=== PATIENT | female | born 1945 | race Caucasian/White ===

== ENCOUNTER → 2016-05-17 | Outpatient (CLI) | payer BC ==
[~2016-05-17] MED LIST: ATEN-173 PO; CALCTAB5 PO; CHOL1CAP57 PO; CRAN1CAP15 PO; ESCI1TAB9 PO; MESA0.37 PO; MULT-506 PO; OMEG10007 PO; RANI150T3 PO
[2016-05-17 10:23] LABS: BASO % 0.5 %; BASO ABS # 0.02 K/uL (0-0.2); COMPLETE YES; EOS % 6.3 %; HEMATOCRIT 40.6 % (37-47); LYMPH ABS # 1.38 K/uL (1.2-3.4); MEAN CELL VOLUME 94.6 fL (80-100); MEAN CORPUSCULAR HEMOGLOBIN 31.7 pg (25-34); MEAN CORPUSCULAR HGB CONC 33.5 g/dl (32-36); MEAN PLATELET VOLUME 9.1 fL (7.4-10.4); MONO % 7.4 %; NEUT % 53.8 %; PLATELET COUNT 339 K/uL (130-400); RED BLOOD COUNT 4.29 M/uL (4.2-5.4); WHITE BLOOD COUNT 4.31 K/uL (4.8-10.8)
[2016-05-17 10:32] LABS: URINE APPEARANCE CLEAR (CLEAR); URINE BILIRUBIN NEG (NEG); URINE COLOR DK YELLOW; URINE NITRITE NEG (NEG); URINE PH 6.5 (4.5-7.5); URINE SPECIFIC GRAVITY 1.019 (1.000-1.030); UROBILINOGEN NEG (NEG)
[2016-05-17 10:34] LABS: MANUAL MICROSCOPIC REQUIRED? NO; REVIEW REQ? NO
[2016-05-17 10:44] LABS: BLOOD UREA NITROGEN 14 mg/dl (7-18); BUN/CREATININE RATIO 11.5 (10-20); CALCIUM 9.3 mg/dl (8.5-10.1); CARBON DIOXIDE 27 mmol/L (21-32); CHLORIDE 107 mmol/L (98-107); CHOLESTEROL 229 mg/dl (0-200); GLUCOSE 93 mg/dl (70-99); POTASSIUM 4.3 mmol/L (3.5-5.1); SODIUM 143 mmol/L (136-145); TRIGLYCERIDES 177 mg/dl (0-150); VERY LOW DENSITY LIPOPROT CALC 35 mg/dl
[2016-05-17 10:47] LABS: CHOLESTEROL/HDL RATIO 3.6; HDL CHOLESTEROL 63 mg/dl; LDL CHOLESTEROL CALCULATED 131 mg/dl
== END | disposition home or self-care (01) ==
LOC: C.LAB1850 09:02
PROVIDERS: ATTEND Internal Medicine
DX: K51.90 Ulcerative colitis, unspecified, without complications (principal); E78.5 Hyperlipidemia, unspecified; I10 Essential (primary) hypertension; E55.9 Vitamin D deficiency, unspecified

== ENCOUNTER → 2016-05-29 | Outpatient (CLI) | payer BC ==
--- NOTE | 2016-05-29 16:17 | MAMMOGRAPHY REPORT ---
BILATERAL DIGITAL SCREENING MAMMOGRAM WITH CAD: 05/29/2016 CLINICAL HISTORY: Routine screening examination. TECHNIQUE: Current study was also evaluated with a Computer Aided Detection (CAD) system. COMPARISON: Comparison is made to exams dated: 05/27/2015 mammogram, 05/26/2014 mammogram, 05/25/2013 mammogram, 05/16/2009 mammogram, 05/17/2010 mammogram, and 05/22/2011 mammogram - [facility]. BREAST COMPOSITION: There are scattered areas of fibroglandular density in both breasts. FINDINGS: The parenchymal pattern is unchanged. No developing mass, architectural distortion or clu ster of suspicious microcalcifications is seen. IMPRESSION: ACR BI-RADS CATEGORY 2: BENIGN There is no mammographic evidence of malignancy. A 1 year screening mammogram is recommended. The p atient will receive written notification of the results. Approximately 10% of breast cancers are not detected with mammography. A negative mammographic repor t should not delay biopsy if a clinically suggestive mass is present. Francia Barton M.D. ay/:05/29/2016 14:00:41 Customer Account Representative: Paula BELLE(Karrie)(P[place]), [facility] letter sent: Normal 1/2 BI-RADS Code: ACR BI-RADS Category 2: Benign
== END | disposition home or self-care (01) ==
LOC: C.MAMM 13:08
PROVIDERS: ATTEND Obstetrics & Gynecology
DX: Z12.31 Encounter for screening mammogram for malignant neoplasm of breast (principal)

== ENCOUNTER → 2016-11-29 | Outpatient (CLI) | payer BC ==
[2016-11-29 09:47] LABS: HEMATOCRIT 41.9 % (37-47); MEAN CORPUSCULAR HEMOGLOBIN 32.2 pg (25-34); MEAN CORPUSCULAR HGB CONC 33.9 g/dl (32-36); MEAN PLATELET VOLUME 9.7 fL (7.4-10.4); PLATELET COUNT 230 K/uL (130-400); RED BLOOD COUNT 4.41 M/uL (4.2-5.4); WHITE BLOOD COUNT 4.62 K/uL (4.8-10.8)
[2016-11-29 12:51] LABS: BLOOD UREA NITROGEN 16 mg/dl (7-18); BUN/CREATININE RATIO 13.5 (10-20); CALCIUM 9.2 mg/dl (8.5-10.1); CARBON DIOXIDE 28 mmol/L (21-32); CHLORIDE 108 mmol/L (98-107); GLUCOSE 100 mg/dl (70-99); POTASSIUM 4.3 mmol/L (3.5-5.1); SODIUM 141 mmol/L (136-145)
[2016-11-29 12:55] LABS: ALB/GLOB RATIO 1.2 (0.9-2); ALKALINE PHOSPHATASE 76 U/L (45-117); ALT/SGPT 23 U/L (12-78); AST/SGOT 17 U/L (15-37); CHOLESTEROL 226 mg/dl (0-200); CHOLESTEROL/HDL RATIO 3.1; HDL CHOLESTEROL 74 mg/dl; LDL CHOLESTEROL CALCULATED 124 mg/dl; TRIGLYCERIDES 142 mg/dl (0-150); VERY LOW DENSITY LIPOPROT CALC 28 mg/dl
== END | disposition home or self-care (01) ==
LOC: C.LAB1850 08:29
PROVIDERS: ATTEND Internal Medicine
DX: K51.90 Ulcerative colitis, unspecified, without complications (principal); E55.9 Vitamin D deficiency, unspecified; E78.5 Hyperlipidemia, unspecified

== ENCOUNTER → 2017-05-31 | Outpatient (CLI) | payer BC ==
--- NOTE | 2017-06-03 15:50 | MAMMOGRAPHY REPORT ---
BILATERAL DIGITAL SCREENING MAMMOGRAM TOMOSYNTHESIS WITH CAD: 05/31/2017 CLINICAL HISTORY: Routine screening. Patient has no complaints. TECHNIQUE: Breast tomosynthesis in addition to standard 2D mammography was performed. Current study was also evaluated with a Computer Aided Detection (CAD) system. COMPARISON: Comparison is made to exams dated: 05/29/2016 mammogram, 05/27/2015 mammogram, 05/26/2014 m ammogram, 05/25/2013 mammogram, 05/22/2012 mammogram, and 05/22/2011 mammogram - [facility]. BREAST COMPOSITION: There are scattered areas of fibroglandular density in both breasts. FINDINGS: No suspicious masses, calcifications, or areas of architectural distortion are noted in ei ther breast. There has been no significant interval change compared to prior exams. IMPRESSION: ACR BI-RADS CATEGORY 1: NEGATIVE There is no mammographic evidence of malignancy. A 1 year screening mammogram is recommended. The pa tient will receive written notification of the results. Approximately 10% of breast cancers are not detected with mammography. A negative mammographic report should not delay biopsy if a clinically suggestive mass is present. Latonia Soni M.D. ah/:05/31/2017 15:02:36 [employer] Developer: Jennifer BELLE(Karrie)(M), [facility] letter sent: Normal 1/2 BI-RADS Code: ACR BI-RADS Category 1: Negative
== END | disposition home or self-care (01) ==
LOC: C.MAMM 08:59
PROVIDERS: ATTEND Internal Medicine
DX: Z12.31 Encounter for screening mammogram for malignant neoplasm of breast (principal)

== ENCOUNTER → 2017-08-28 | Day surgery (SDC) | payer BC ==
[2017-07-23 13:05] VITALS: Ht 163.8 cm; Wt 67.7 kg
[~2017-08-28] VITALS: Ht 163.8 cm; Wt 67.7 kg
[~2017-08-28] MED LIST changes: +500ML BSS 0.3ML EPI 1:1000PF IRRIG ONE; +ACETAMINOPHEN 325 MG TAB PO PRN; +AMVISC PLUS 0.8ML SYRINGE INT OCU ONE; +ATROPINE SULFATE 0.1 MG/ML 5ML SYR IV PRN; +AcetaZOLAMIDE 250 MG TAB PO SCH; +BRIMONIDINE TART 0.2% OP SOLN PER DROP CHARGE ONE; +BRIMONIDINE TARTRATE 0.2% 5ML ONE; +BSS FLUSH ONE; +CALC-393 PO; -CALCTAB5 PO; -CRAN1CAP15 PO; +CRANCAP4 PO; +ENDOCOAT 0.85ML SYRINGE INT OCU ONE; +ESCI10TA17 PO; -ESCI1TAB9 PO; +EpHEDrine SULFATE INJ 50 MG/ML AMP IV PRN; +EpINEphrine INJ 1MG/ML AMP 1 MG/ML AMP ONE; +LACTATED RINGER'S 1000ML 500 ML IV SCH; +LIDOCAINE 4% OP SOLN DROP CHARGE ONE; +LIDOCAINE 4% OP SOLN DROP CHARGE OPL SCH; +LIDOCAINE HCL 1% MPF 2 ML VIAL ONE; -MESA0.37 PO; +MESA1TAB4 PO; +MIDAZOLAM HCL 1 MG/ML 2ML VIAL ONE; +MIX: 4ML BSS 1ML EPI 1:1000 PF INSTIL ONE; +MOXIFLOXACIN OPH SOLN PER DROP CHARGE ONE; +OCUCOAT 1 ML SOLN IO ONE; +POVIDONE-IODINE OP SOLN 30 ML BTL ONE; +PROPARACAINE 0.5% OP SOLN PER DROP CHARGE OPL SCH; +TOBRAMYCIN/DEXAMETHASONE OPH OINT PER APPLN CHARGE ONE
[2017-08-28] MEDS: PHENYLEPHRINE HCL 2.5% OP SOLN PER DROP CHARGE OPL SCH ×2 (06:33→06:38)
[2017-08-28] MEDS: TROPICAMIDE 1% OP SOLN PER DROP CHARGE OPL SCH ×2 (06:34→06:39)
[2017-08-28] MEDS: CYCLOPENTOLATE HCL 1% OP SOLN PER DROP CHARGE OPL SCH ×2 (06:35→06:40)
[2017-08-28] MEDS: MOXIFLOXACIN OPH SOLN PER DROP CHARGE OPL SCH ×2 (06:36→06:46)
--- NOTE | 2017-08-28 06:39 | History & Physical Bridge - [place] ---
H&P Re-Evaluation Bridge Note: I have examined the patient, reviewed the History & Physical and in the interval since the performance of the History & Physical I have noted the following changes of clinical significance: No changes noted
--- NOTE | 2017-08-28 07:17 | [facility] Operative Report ---
Operative Report Date of Service Aug 28, 2017. Operative Report 1. PREOPERATIVE DIAGNOSIS: Senile nuclear cataract, left eye. 2. POSTOPERATIVE DIAGNOSIS: Senile nuclear cataract, left eye. 3. PROCEDURE: Phacoemulsification of left cataract with posterior chamber lens implant, type Technis, model Symfony ZXR00, power +18.5 diopters. ANESTHESIA: Local standby. SURGEON: Dr. Gamble. COMPLICATIONS: None. OPERATING TIME: 10 minutes. 4. OPERATION AND FINDINGS: DESCRIPTION OF PROCEDURE: The left pupil was dilated. The anesthetic was administered using a topical technique. The left eye was prepped and draped. A speculum was placed. A clear corneal incision was formed. The chamber was filled with Amvisc Plus and Endocoat. Epinephrine solution was used. A paracentesis was placed. A capsulorrhexis was performed. The nucleus was hydrodissected. The lens was removed with phacoemulsification. Time was 3.53 seconds. The aspiration unit was used to remove the cortex. The capsule was filled with Amvisc Plus. The lens implant was folded and placed into the capsule. The incision was hydrated. The Amvisc was aspirated. The wound was secure. The chamber was deep. The pupil was round. Brimonidine, TobraDex ointment and Vigamox solution were placed. The speculum was removed. The patient was returned to the Recovery Room in stable condition. I attest to the content of the Intraoperative Record and any orders documented therein. Any exceptions are noted below. The scribe's documentation has been prepared in my presence, under my direction and personally reviewed by me in its entirety. I confirm that the note above accurately reflects all work, treatment, procedures, and medical decision making performed by me. I personally scribed for Jose Antonio Gamble M.D. ([email or web address]) on 08/28/17 at 07:17. Electronically submitted by Kaelyn Martell ([email or web address]).
[2017-08-28 07:20] VITALS: TEMP 36.6
--- NOTE | 2017-08-28 07:20 | Discharge Instructions-SurgCtr ---
Discharge Instructions Date of Service Aug 28, 2017. Visit Reason for Visit: Left Cataract Discharge Discharge Diagnosis / Problem: lens implant left eye Discharge Goals Goal(s): Improve function Activity Recommendations Activity Limitations: resume your previous activity Lifting Limitations: no more than 10 pounds Exercise/Sports Limitations: gradually increase as tolerated May Resume Sexual Activity: when tolerated Shower/Bathe: tomorrow Driving or Machine Use: resume 1 day after discharge Anesthesia . Post Anesthesia Instructions: If you have had General Anesthesia or IV Sedation: * Do not drive today. * Resume driving when surgeon permits. * Do not make important decisions or sign legal documents today. * Call surgeon for: 1. Temperature elevations greater than 101 degrees F. 2. Uncontrollable pain. 3. Excessive bleeding. 4. Persistent nausea and vomiting. 5. Medication intolerance (nausea, vomiting or rash). * For nausea and vomiting use only clear liquids such as: tea, soda, bouillon until nausea subsides, then gradually increase diet as tolerated. * If you have any concerns or questions, call your surgeon's office. If physician is unavailable and it is an emergency, call 911 or go to the nearest emergency room. . Instructions / Follow-Up Instructions / Follow-Up ACTIVITY RECOMMENDATIONS: * Light activities. * Mild irritation and blurred vision are common for the first few days. * You may walk outside, read, watch television. * Redness around the white part of the eye is common. MEDICATIONS: Resume previous medications unless instructed otherwise by your surgeon. * Take white Diamox (Acetazolamide) tablet at 1 pm today. Start all eye drops at 1 pm today: * Eye drops (today and tomorrow): Prednisone - one drop in operative eye every 3 hours while awake Ofloxacin - one drop in operative eye every 3 hours while awake SPECIAL CARE INSTRUCTIONS: * Tape plastic shield over eye to sleep at night. Call your doctor at with any concerns or problems. FOLLOW UP VISIT: Follow-up with Dr Gamble at [place] office as scheduled. Diet Recommendations Home Diet: no limitations Procedures Procedures Performed: Left Cataract Phacoemulsification With Intraocular Lens Implant Pending Studies Studies pending at discharge: no Medical Emergencies . Who to Call and When: Medical Emergencies: If at any time you feel your situation is an emergency, please call 911 immediately. . Non-Emergent Contact Non-Emergency issues call your: Pension Consultant Call Non-Emergent contact if: your pain is not controlled [phone] . . "Provider Documentation" section prepared by Jose Antonio Gamble. .
[2017-08-28 07:40] VITALS: BP 166/79; PULSE 50; O2SAT 100
--- NOTE | 2017-08-28 07:49 | Anesthesia Progress Nt - [facility] ---
Anesthesia Post Op Note Date & Time Aug 28, 2017 at 07:49 Vital Signs Pain Intensity: 0 Vital Signs Past 12 Hours Date Time Temp Pulse Resp B/P (MAP) Pulse Ox O2 Delivery O2 Flow Rate FiO2 08/28/17 07:40 50 14 166/79 (108) 100 Room Air 08/28/17 07:20 36.6 50 16 145/71 (95) 98 Room Air 08/28/17 06:27 36.7 52 18 162/96 (118) 96 Room Air Notes Mental Status: alert / awake / arousable, participated in evaluation Pt Amnestic to Procedure: Yes Nausea / Vomiting: adequately controlled Pain: adequately controlled Airway Patency, RR, SpO2: stable & adequate BP & HR: stable & adequate Hydration State: stable & adequate Anesthetic Complications: no major complications apparent
== END | disposition home or self-care (01) ==
LOC: X.SURG 06:08
PROVIDERS: ATTEND Specialist
DX: H25.12 Age-related nuclear cataract, left eye (principal); J45.909 Unspecified asthma, uncomplicated; I10 Essential (primary) hypertension; K21.9 Gastro-esophageal reflux disease without esophagitis

== ENCOUNTER → 2017-12-11 | Outpatient (CLI) | payer BC ==
[~2017-12-11] MED LIST changes: -500ML BSS 0.3ML EPI 1:1000PF IRRIG ONE; -ACETAMINOPHEN 325 MG TAB PO PRN; -AMVISC PLUS 0.8ML SYRINGE INT OCU ONE; -ATROPINE SULFATE 0.1 MG/ML 5ML SYR IV PRN; -AcetaZOLAMIDE 250 MG TAB PO SCH; -BRIMONIDINE TART 0.2% OP SOLN PER DROP CHARGE ONE; -BRIMONIDINE TARTRATE 0.2% 5ML ONE; -BSS FLUSH ONE; -ENDOCOAT 0.85ML SYRINGE INT OCU ONE; -EpHEDrine SULFATE INJ 50 MG/ML AMP IV PRN; -EpINEphrine INJ 1MG/ML AMP 1 MG/ML AMP ONE; -LACTATED RINGER'S 1000ML 500 ML IV SCH; -LIDOCAINE 4% OP SOLN DROP CHARGE ONE; -LIDOCAINE 4% OP SOLN DROP CHARGE OPL SCH; -LIDOCAINE HCL 1% MPF 2 ML VIAL ONE; -MIDAZOLAM HCL 1 MG/ML 2ML VIAL ONE; -MIX: 4ML BSS 1ML EPI 1:1000 PF INSTIL ONE; -MOXIFLOXACIN OPH SOLN PER DROP CHARGE ONE; -OCUCOAT 1 ML SOLN IO ONE; -POVIDONE-IODINE OP SOLN 30 ML BTL ONE; -PROPARACAINE 0.5% OP SOLN PER DROP CHARGE OPL SCH; -TOBRAMYCIN/DEXAMETHASONE OPH OINT PER APPLN CHARGE ONE
[2017-12-11 09:34] LABS: HEMATOCRIT 42.2 % (37-47); HEMOGLOBIN 14.1 g/dL (12.0-16.0); MEAN CELL VOLUME 95.7 fL (80-100); MEAN CORPUSCULAR HGB CONC 33.4 g/dl (32-36); MEAN PLATELET VOLUME 9.8 fL (7.4-10.4); PLATELET COUNT 227 K/uL (130-400); RED CELL DISTRIBUTION WIDTH CV 13.3 % (11.5-14.5); WHITE BLOOD COUNT 4.83 K/uL (4.8-10.8)
[2017-12-11 10:05] LABS: ALT/SGPT 24 U/L (12-78); AST/SGOT 17 U/L (15-37); BLOOD UREA NITROGEN 18 mg/dl (7-18); CALCIUM 9.1 mg/dl (8.5-10.1); CARBON DIOXIDE 30 mmol/L (21-32); CHOLESTEROL 233 mg/dl (0-200); CREATININE 1.17 mg/dl (0.60-1.20); GLUCOSE 86 mg/dl (70-99); LDL CHOLESTEROL CALCULATED 136 mg/dl; POTASSIUM 4.1 mmol/L (3.5-5.1); SODIUM 140 mmol/L (136-145)
== END | disposition home or self-care (01) ==
LOC: C.LAB1850 08:31
PROVIDERS: ATTEND Internal Medicine
DX: E78.5 Hyperlipidemia, unspecified (principal); I10 Essential (primary) hypertension; K51.90 Ulcerative colitis, unspecified, without complications; E55.9 Vitamin D deficiency, unspecified

== ENCOUNTER 2020-12-03 11:08 | Inpatient (IN) ==
[2020-12-03] MEDS ORDERED: ONDANSETRON INJ 2 MG/ML 2 ML VIAL IV STA (11:34)
[2020-12-03] MEDS ORDERED: SODIUM CHLORIDE 0.9% 1000ML 1,000 ML IV STA (11:34)
[2020-12-03] MEDS ORDERED: OPTIRAY 320 100ml IV ONE (11:38)
--- NOTE | 2020-12-03 11:40 | Emergency Department Note ---
Impression & Plan Acute hyponatremia, Elevated troponin, Elevated liver enzymes, Weakness ED Provider Note NAME: KIMBERLEE TEJADA AGE: 75 SEX: F : 1945 ARRIVES VIA: Walk-In INFORMANT: [Patient] ED PROVIDER(S): [Gianluca Jeronimo MD] CHIEF COMPLAINT: Abdominal pain HISTORY OF PRESENT ILLNESS: The patient is a 75-year-old female who states that on November 22, she had a colonoscopy. A diverticuli was seen. The patient states that a few days after, she began having some lower abdominal pain, mostly on the right. She developed a fever and nausea. She has no appetite. The pain in the abdomen is minimal and about a 2 on a scale of 1 out of 10. The patient went to her doctor's offi ce had a Covid test, x-ray of her chest, lab work, urine sample. Her LFTs were a bit elevated, her urine suggested infection and she was placed on Macrobid. He was just recently called and told to stop the Macrobid as the culture returned negative. The patient states that because of the liver enzyme elevation, her doctor performed an ultrasound of the right upper quadrant, this was unremarkable. Today, as she is no better really, she was sent to the ED for evaluation. She does state though her fever has subsided. The patient has not had vomiting. There has been no urinary complaints. No cough, cold, congestion or shortness of breath. She does complain of some body aching though. REVIEW OF SYSTEMS: See HPI for pertinent positives and negatives. A total of ten systems were reviewed and were otherwise negative. PMHx/PSHx: See Below SOCIAL HISTORY: See Below. PHYSICAL EXAM: GENERAL: Patient is in no acute distress. HEENT: No acute trauma, normocephalic atraumatic, mucous membranes moist, no nasal congestion, no scleral icterus. NECK: No stridor, no adenopathy, no meningismus, trachea is midline. LUNGS: Clear to auscultation bilaterally, no wheeze, no rhonchi, breath sounds equal. HEART: Without murmurs gallops or rubs, regular rate and rhythm. ABDOMEN: Soft, mildly tender in the epigastrium, I cannot really produce any discomfort currently in the right lower quadrant, bowel sounds positive, no hernias, no peritonitis. EXTREMITIES: No cyanosis or edema, full range of motion of all the joints without pain or difficulty, no signs for acute trauma. NEUROLOGIC: Oriented x 3, no acute motor or sensory deficits, no focal weakness. SKIN: No rash, no jaundice, no diaphoresis. DIFFERENTIAL DIAGNOSIS: Appendicitis, ovarian cyst, ovarian torsion, infections, diverticulitis, UTI, obstruction, mesenteric ischemia, aortic pathology, inflammatory bowel disease, renal colic, PUD, pancreatitis, biliary pathology, hernia, volvulus, const ipation, as well as other pathologies. EMERGENCY DEPARTMENT COURSE/PROCEDURES: ECG: Indication was abdominal pain. The ECG shows a normal sinus rhythm with a rate of 75. There is some nonspecific ST change. I see no concerning ST elevation. There are no PVCs. The QTc is 439. Continuous Cardiac Monitoring: An order was placed for continuous cardiac monitoring. The monitor shows a rate of 68 with normal sinus rhythm. MEDICAL DECISION MAKING: There is a mild leukocytosis, this could be consistent with infection. There was a normal hemoglobin and platelet count. Sodium was low at 129. No kidney failure. Lactic acid level was not elevated making severe sepsis less likely. There were some moderate liver enzyme elevations. ECG showed a sinus rhythm without acute ischemic change. Cardiac enzyme testing x1 did return elevated consistent with possible cardiac injury or strain. No evidence for pancreatitis by her testing. Urinalysis did not show evidence for infection. Lyme disease testing was positive for IgM, negative for IgG. Covid testing returned negative. Anaplasmosis testing is pending. Chest film showed some chronic findings, no obvious pneumonia. Abdominal and pelvis CT showed potential cystitis, there was a calcified mass in the left pelvis. The liver seemed somewhat inflamed. No bowel obstruction. No diverticulitis. On exam, the patient was not febrile or toxic. There was no peritonitis. The patient was given IV saline, 1 L. She was given IV Zofran. She was given IV ceftriaxone as antibiotic therapy. I am not certain how to explain her entire presentation. A tickborne disease such as Lyme or anaplasmosis is certainly possible. I suppose viral illness is also possible. With all her findings, I do think a hospital stay is warranted. Further care and work-up is warranted. I spoke to the patient and case management. The on-call hospitalist was consulted. Past Med/Surg History Medical History Allergy-induced asthma inhaler prn Anxiety Arthritis GERD (gastroesophageal reflux disease) Hyperlipidemia Hypertension Osteoporosis Tubular adenoma of colon Ulcerative colitis Vitamin D deficiency Surgical History History of bilateral cataract extraction History of breast biopsy benign History of dilatation and curettage History of removal of skin mole History of wisdom tooth extraction Family History Father Lung cancer Mother History of colon cancer Colon cancer Colitis Breast cancer Unknown Heart disease Grandfather (Maternal) Pulmonary embolism Stroke Other Myocardial infarction No family history of adverse response to anesthesia Denies family history of Ovarian cancer Prostate cancer Social History Smoking Status: Never smoker Second Hand Exposure: No; Hx Alcohol Use: Yes Alcohol type: wine Hx Substance Use: No Preferred Language: Dutch Communication Ability: Effective Visual Impairment: No Limitations Hearing Ability: Hard of Hearing Recovery Agent Required: No Beliefs That Will Affect Care: None marital status: Current Living Situation: Spouse current occupational status: retired Feels Safe at Home: Yes Childhood Exposure to Second-Hand Smoke: No Dental Care, Regularly: Yes Physical Activity Frequency: Does not Exercise Seatbelt Use: always Sunscreen Use: Yes Assistive Devices: Glasses Allergies Allergies Allergy/AdvReac Type Severity Reaction Status Date / Time SAWYER Inhibitors Allergy Intermediate lip Verified 12/03/20 12:21 swelling lisinopril Allergy Intermediate LIP Verified 12/03/20 12:21 SWELLING adhesive Allergy Mild SKIN Verified 12/03/20 12:21 IRRITATION latex Allergy Mild skin Verified 12/03/20 12:21 irritation Home Meds Home Medications Medication Instructions Recorded Confirmed calcium carbonate 400 mg calcium 400 mg PO BID tab 11/09/19 12/03/20 (1,000 mg) chewable tablet cholecalciferol (vitamin D3) 25 25 mcg PO BID cap 11/09/19 12/03/20 mcg (1,000 unit) capsule omega 3-dha 120 mg-epa 180 mg-fish 1 cap PO BID cap 11/09/19 12/03/20 oil 600 mg capsule mesalamine 800 mg tablet,delayed 800 mg PO TID tab 05/13/20 12/03/20 release atenolol 25 mg tablet 25 mg PO QAM 11/15/20 12/03/20 cetirizine 10 mg tablet (Zyrtec) 10 mg PO QAM 11/15/20 12/03/20 escitalopram oxalate 10 mg tablet 10 mg PO QAM 11/15/20 12/03/20 famotidine 20 mg tablet (Pepcid) 20 mg PO HS PRN 11/15/20 12/03/20 pantoprazole 40 mg tablet,delayed 40 mg PO QAM 11/15/20 12/03/20 release acetaminophen 500 mg tablet 1,000 mg PO Q6H PRN 12/03/20 12/03/20 (Tylenol Extra Strength) Previous Rx's Medication Instructions Recorded albuterol sulfate 90 mcg/actuation 1 inh INHALATION QID PRN #1 ea 02/23/20 aerosol inhaler nitrofurantoin 100 mg PO BID 7 Days #14 cap 11/29/20 monohydrate/macrocrystals 100 mg capsule (Macrobid) Results & Data (ED) Vital Signs Vital Signs - 24 hr 12/03/20 11:18 12/03/20 11:47 12/03/20 12:02 Temperature 37.2 C Temperature Source Oral Pulse Rate 72 Pulse Rate [Finger] 68 Respiratory Rate 18 18 Blood Pressure 151/83 H Blood Pressure [Left Arm] 142/77 H Blood Pressure Mean 105 Blood Pressure Mean [Left Arm] 98 Pulse Oximetry 95 97 95 Oxygen Delivery Method Room Air Room Air Oxygen Flow Rate Sepsis Recent Fever Within 48 Hours No Sepsis New/Unexplained Change in Mental Status No Sepsis Action Taken by Nursing No Action Required 12/03/20 13:13 12/03/20 13:15 12/03/20 14:04 Temperature Temperature Source Pulse Rate Pulse Rate [Finger] 79 92 H Respiratory Rate 24 20 Blood Pressure Blood Pressure [Left Arm] 178/94 H 173/92 H Blood Pressure Mean Blood Pressure Mean [Left Arm] 122 119 Pulse Oximetry 90 91 95 Oxygen Delivery Method Room Air Nasal Cannula Room Air Oxygen Flow Rate 2 Sepsis Recent Fever Within 48 Hours Sepsis New/Unexplained Change in Mental Status Sepsis Action Taken by Nursing 12/03/20 15:34 12/03/20 16:07 Temperature Temperature Source Pulse Rate Pulse Rate [Finger] 78 83 Respiratory Rate 20 18 Blood Pressure Blood Pressure [Left Arm] 159/87 H 162/81 H Blood Pressure Mean Blood Pressure Mean [Left Arm] 111 108 Pulse Oximetry 96 96 Oxygen Delivery Method Room Air Room Air Oxygen Flow Rate Sepsis Recent Fever Within 48 Hours Sepsis New/Unexplained Change in Mental Status Sepsis Action Taken by Halfway Medications Current Medication List: was personally reviewed by me Laboratory Data Attestation: I reviewed the patient's lab results. Result diagrams: 12/03/20 11:40 12/03/20 13:02 Lab Results 12/03/20 12/03/20 12/03/20 Range/Units 11:40 11:40 11:40 WBC 14.07 H (4.8-10.8) K/uL RBC 4.28 (4.2-5.4) M/uL Hgb 13.9 (12.0-16.0) g/dL Hct 38.9 (37-47) % MCV 90.9 (80-100) fL MCH 32.5 (25-34) pg MCHC 35.7 (32-36) g/dL RDW Std Deviation 47.8 H (36.4-46.3) fL RDW Coeff of Johnson 14.2 (11.5-14.5) % Plt Count 337 (130-400) K/uL MPV 9.4 (7.4-10.4) fL Immature Gran % (Auto) 0.4 % Neut % (Auto) 84.3 % Lymph % (Auto) 10.1 % [place] % (Auto) 5.0 % Eos % (Auto) 0.0 % Baso % (Auto) 0.2 % Neut # (Auto) 11.87 H (1.4-6.5) K/uL Lymph # (Auto) 1.42 (1.2-3.4) K/uL [place] # (Auto) 0.70 H (0.11-0.59) K/uL Eos # (Auto) 0.00 (0-0.5) K/uL Baso # (Auto) 0.03 (0-0.2) K/uL Immature Gran # (Auto) 0.05 H (0.00-0.02) K/uL PT (9.0-12.0) Seconds INR (0.9-1.1) Sodium 129 L (136-145) mmol/L Potassium (3.5-5.1) mmol/L Chloride 97 L (98-107) mmol/L Carbon Dioxide 26 (21-32) mmol/L Anion Gap 6.0 (3-11) BUN 11 (7-18) mg/dl Creatinine 0.91 (0.6-1.2) mg/dl Est Cr Clr Drug Dosing 45.6 ml/min Est GFR ( Amer) 70.5 ml/min Est GFR (Non-Af Amer) 60.9 ml/min BUN/Creatinine Ratio 12.0 (10-20) Glucose 120 H (70-99) mg/dl Osmolality (280-300) mOsm/kg Lactate (0.4-2.0) mmol/L Calcium 8.9 (8.5-10.1) mg/dl Total Bilirubin 1.2 H (0.2-1) mg/dl AST (15-37) U/L ALT 476 H (12-78) U/L Alkaline Phosphatase 268 H (45-117) U/L Troponin I 0.282 H* (0-0.045) ng/ml Total Protein 7.7 (6.4-8.2) gm/dl Albumin 3.1 L (3.4-5.0) gm/dl Globulin 4.6 H (2.5-4.0) gm/dl Albumin/Globulin Ratio 0.7 L (0.9-2) Lipase 144 (73-393) U/L Urine Color Urine Appearance (Clear) Urine pH (4.5-7.5) Ur Specific Tiro (1.000-1.030) Urine Protein (Negative) Urine Glucose (UA) (Negative) Urine Ketones (Negative) Urine Blood (Negative) Urine Nitrite (Negative) Urine Bilirubin (Negative) Urine Urobilinogen (Negative) Ur Leukocyte Esterase (Negative) Urine WBC (Auto) (0-5) /hpf Urine RBC (Auto) (0-4) /hpf U Hyaline Cast (Auto) (0-5) /lpf U Epithel Cells (Auto) (0-5) /lpf Urine Bacteria (Auto) (Negative) Lyme Disease IgG Ab Negative (Negative) Lyme Disease IgM Ab Positive A (Negative) COVID-19 Eval Order SARS-CoV-2 (PCR) (Negative) 12/03/20 12/03/20 12/03/20 Range/Units 11:45 13:02 13:56 WBC (4.8-10.8) K/uL RBC (4.2-5.4) M/uL Hgb (12.0-16.0) g/dL Hct (37-47) % MCV (80-100) fL MCH (25-34) pg MCHC (32-36) g/dL RDW Std Deviation (36.4-46.3) fL RDW Coeff of Johnson (11.5-14.5) % Plt Count (130-400) K/uL MPV (7.4-10.4) fL Immature Gran % (Auto) % Neut % (Auto) % Lymph % (Auto) % [place] % (Auto) % Eos % (Auto) % Baso % (Auto) % Neut # (Auto) (1.4-6.5) K/uL Lymph # (Auto) (1.2-3.4) K/uL [place] # (Auto) (0.11-0.59) K/uL Eos # (Auto) (0-0.5) K/uL Baso # (Auto) (0-0.2) K/uL Immature Gran # (Auto) (0.00-0.02) K/uL PT (9.0-12.0) Seconds INR (0.9-1.1) Sodium (136-145) mmol/L Potassium 3.8 (3.5-5.1) mmol/L Chloride (98-107) mmol/L Carbon Dioxide (21-32) mmol/L Anion Gap (3-11) BUN (7-18) mg/dl Creatinine (0.6-1.2) mg/dl Est Cr Clr Drug Dosing ml/min Est GFR ( Amer) ml/min Est GFR (Non-Af Amer) ml/min BUN/Creatinine Ratio (10-20) Glucose (70-99) mg/dl Osmolality (280-300) mOsm/kg Lactate 1.8 (0.4-2.0) mmol/L Calcium (8.5-10.1) mg/dl Total Bilirubin (0.2-1) mg/dl AST 226 H (15-37) U/L ALT (12-78) U/L Alkaline Phosphatase (45-117) U/L Troponin I (0-0.045) ng/ml Total Protein (6.4-8.2) gm/dl Albumin (3.4-5.0) gm/dl Globulin (2.5-4.0) gm/dl Albumin/Globulin Ratio (0.9-2) Lipase (73-393) U/L Urine Color Yellow Urine Appearance Clear (Clear) Urine pH 7.0 (4.5-7.5) Ur Specific Tiro > 1.045 H (1.000-1.030) Urine Protein Trace H (Negative) Urine Glucose (UA) Negative (Negative) Urine Ketones 1+ H (Negative) Urine Blood Trace H (Negative) Urine Nitrite Negative (Negative) Urine Bilirubin Negative (Negative) Urine Urobilinogen Negative (Negative) Ur Leukocyte Esterase Negative (Negative) Urine WBC (Auto) 1-5 (0-5) /hpf Urine RBC (Auto) 0-4 (0-4) /hpf U Hyaline Cast (Auto) 1-5 (0-5) /lpf U Epithel Cells (Auto) 10-20 H (0-5) /lpf Urine Bacteria (Auto) Negative (Negative) Lyme Disease IgG Ab (Negative) Lyme Disease IgM Ab (Negative) COVID-19 Eval Order SARS-CoV-2 (PCR) (Negative) 12/03/20 12/03/20 12/03/20 Range/Units 14:05 14:05 14:46 WBC (4.8-10.8) K/uL RBC (4.2-5.4) M/uL Hgb (12.0-16.0) g/dL Hct (37-47) % MCV (80-100) fL MCH (25-34) pg MCHC (32-36) g/dL RDW Std Deviation (36.4-46.3) fL RDW Coeff of Johnson (11.5-14.5) % Plt Count (130-400) K/uL MPV (7.4-10.4) fL Immature Gran % (Auto) % Neut % (Auto) % Lymph % (Auto) % [place] % (Auto) % Eos % (Auto) % Baso % (Auto) % Neut # (Auto) (1.4-6.5) K/uL Lymph # (Auto) (1.2-3.4) K/uL [place] # (Auto) (0.11-0.59) K/uL Eos # (Auto) (0-0.5) K/uL Baso # (Auto) (0-0.2) K/uL Immature Gran # (Auto) (0.00-0.02) K/uL PT (9.0-12.0) Seconds INR (0.9-1.1) Sodium (136-145) mmol/L Potassium (3.5-5.1) mmol/L Chloride (98-107) mmol/L Carbon Dioxide (21-32) mmol/L Anion Gap (3-11) BUN (7-18) mg/dl Creatinine (0.6-1.2) mg/dl Est Cr Clr Drug Dosing ml/min Est GFR ( Amer) ml/min Est GFR (Non-Af Amer) ml/min BUN/Creatinine Ratio (10-20) Glucose (70-99) mg/dl Osmolality 277 L (280-300) mOsm/kg Lactate (0.4-2.0) mmol/L Calcium (8.5-10.1) mg/dl Total Bilirubin (0.2-1) mg/dl AST (15-37) U/L ALT (12-78) U/L Alkaline Phosphatase (45-117) U/L Troponin I (0-0.045) ng/ml Total Protein (6.4-8.2) gm/dl Albumin (3.4-5.0) gm/dl Globulin (2.5-4.0) gm/dl Albumin/Globulin Ratio (0.9-2) Lipase (73-393) U/L Urine Color Urine Appearance (Clear) Urine pH (4.5-7.5) Ur Specific Tiro (1.000-1.030) Urine Protein (Negative) Urine Glucose (UA) (Negative) Urine Ketones (Negative) Urine Blood (Negative) Urine Nitrite (Negative) Urine Bilirubin (Negative) Urine Urobilinogen (Negative) Ur Leukocyte Esterase (Negative) Urine WBC (Auto) (0-5) /hpf Urine RBC (Auto) (0-4) /hpf U Hyaline Cast (Auto) (0-5) /lpf U Epithel Cells (Auto) (0-5) /lpf Urine Bacteria (Auto) (Negative) Lyme Disease IgG Ab (Negative) Lyme Disease IgM Ab (Negative) COVID-19 Eval Order Covid19 at [facility] SARS-CoV-2 (PCR) NEGATIVE (Negative) 07/31/21 Range/Units 14:46 WBC (4.8-10.8) K/uL RBC (4.2-5.4) M/uL Hgb (12.0-16.0) g/dL Hct (37-47) % MCV (80-100) fL MCH (25-34) pg MCHC (32-36) g/dL RDW Std Deviation (36.4-46.3) fL RDW Coeff of Johnson (11.5-14.5) % Plt Count (130-400) K/uL MPV (7.4-10.4) fL Immature Gran % (Auto) % Neut % (Auto) % Lymph % (Auto) % [place] % (Auto) % Eos % (Auto) % Baso % (Auto) % Neut # (Auto) (1.4-6.5) K/uL Lymph # (Auto) (1.2-3.4) K/uL [place] # (Auto) (0.11-0.59) K/uL Eos # (Auto) (0-0.5) K/uL Baso # (Auto) (0-0.2) K/uL Immature Gran # (Auto) (0.00-0.02) K/uL PT 10.3 (9.0-12.0) Seconds INR 1.0 (0.9-1.1) Sodium (136-145) mmol/L Potassium (3.5-5.1) mmol/L Chloride (98-107) mmol/L Carbon Dioxide (21-32) mmol/L Anion Gap (3-11) BUN (7-18) mg/dl Creatinine (0.6-1.2) mg/dl Est Cr Clr Drug Dosing ml/min Est GFR ( Amer) ml/min Est GFR (Non-Af Amer) ml/min BUN/Creatinine Ratio (10-20) Glucose (70-99) mg/dl Osmolality (280-300) mOsm/kg Lactate (0.4-2.0) mmol/L Calcium (8.5-10.1) mg/dl Total Bilirubin (0.2-1) mg/dl AST (15-37) U/L ALT (12-78) U/L Alkaline Phosphatase (45-117) U/L Troponin I (0-0.045) ng/ml Total Protein (6.4-8.2) gm/dl Albumin (3.4-5.0) gm/dl Globulin (2.5-4.0) gm/dl Albumin/Globulin Ratio (0.9-2) Lipase (73-393) U/L Urine Color Urine Appearance (Clear) Urine pH (4.5-7.5) Ur Specific Tiro (1.000-1.030) Urine Protein (Negative) Urine Glucose (UA) (Negative) Urine Ketones (Negative) Urine Blood (Negative) Urine Nitrite (Negative) Urine Bilirubin (Negative) Urine Urobilinogen (Negative) Ur Leukocyte Esterase (Negative) Urine WBC (Auto) (0-5) /hpf Urine RBC (Auto) (0-4) /hpf U Hyaline Cast (Auto) (0-5) /lpf U Epithel Cells (Auto) (0-5) /lpf Urine Bacteria (Auto) (Negative) Lyme Disease IgG Ab (Negative) Lyme Disease IgM Ab (Negative) COVID-19 Eval Order SARS-CoV-2 (PCR) (Negative) Administered Medications Discontinued Medications Sodium Chloride (Nss 1000ml) 1,000 mls @ 999 mls/hr IV .[id number] STA Stop: 12/03/20 12:34 Last Infusion: 12/03/20 13:03 Dose: 0 mls/hr Documented by: [id number] Admin: 12/03/20 12:01 Dose: 999 mls/hr Documented by: [id number] Ceftriaxone Sodium (Rocephin) 1,000 mg in 50 mls @ 100 mls/hr IV NOW STA Stop: 12/03/20 13:58 Last Infusion: 12/03/20 14:32 Dose: 0 mls/hr Documented by: [id number] Admin: 12/03/20 13:57 Dose: 100 mls/hr Documented by: [id number] Ioversol (Optiray 320 100ml) 93 ml IV ONCE ONE Stop: 12/03/20 11:39 Last Admin: 12/03/20 11:39 Dose: 93 ml Documented by: [id number] Ondansetron HCl (Ondansetron Inj 2 Mg/Ml 2 Ml Vial) 4 mg IV NOW STA Stop: 12/03/20 11:35 Last Admin: 12/03/20 12:01 Dose: 4 mg Documented by: [id number] Imaging Data Radiologist's Impression: Abdomen/Pelvis CT 12/03/20 11:34 CT SCAN OF THE ABDOMEN AND PELVIS WITH IV CONTRAST CLINICAL HISTORY: Lower abdominal pain. Fever. COMPARISON STUDY: Abdominal ultrasound dated 12/02/2020. TECHNIQUE: Following the IV administration of 93 cc of Optiray 320, CT scan of the abdomen and pelvis is performed from the lung bases to the proximal femora. Images are reviewed in the axial, sagittal, and coronal planes. There was an IV malfunction with the initial injection. A second IV was placed and contrast was then administered without complication. A dose lowering technique was utilized adhering to the principles of ALARA. CT DOSE: 298.03 mGy.cm FINDINGS: Lung bases: The heart is top normal in size and without pericardial effusion. There is bibasilar scarring/atelectasis. Intralobular septal thickening is noted at the lung bases. There are numerous bilateral pulmonary nodules which measure up to 8 mm. There is no airspace consolidation typical for pneumonia or pleural effusion. A fat-containing Bochdalek hernia is noted on the right. There is a small hiatal hernia. Liver: The contrast-enhanced liver is enlarged, measuring 20.8 cm in length. The Liver is otherwise normal in contour and attenuation. There is no intrahepatic biliary ductal dilatation. The hepatic veins and portal veins are patent. Periportal edema is noted. Gallbladder: The gallbladder is distended but otherwise normal in appearance. Spleen: Normal in size and attenuation. An 8 mm splenic hypodensity seen on image #53 is pathologically indeterminant and statistically of doubtful significance. Pancreas: Unremarkable. Adrenal glands: Unremarkable. Kidneys: The contrast enhanced kidneys are normal in size and without hydronephrosis. The kidneys enhance and excrete symmetrically. The renal collecting systems and ureters are filled with excreted IV contrast. Abdominal vasculature: The abdominal aorta is normal in course and caliber noting mild to moderate atherosclerotic calcification. Bowel: There is mild colonic diverticulosis without CT evidence of acute diverticulitis. No bowel obstruction is identified. The appendix is normal as visualized. Peritoneum: Trace free fluid is noted in the pelvis. No intraperitoneal free air is identified. Lymphadenopathy: None. Pelvic viscera: The bladder wall appears thickened and there is pericystic infiltration. The bladder contains excreted IV contrast. A 5.2 cm densely calcified lesion in the left adnexa likely represents an exophytic fibroid. Skeletal structures: The skeletal structures are osteopenic. No lytic or blastic lesions are seen. IMPRESSION: 1. Findings suggest cystitis. Correlate with clinical findings and urinalysis. 2. The liver is enlarged and there is mild periportal edema. 3. Mild colonic diverticulosis without CT evidence of acute diverticulitis. 4. Intralobular septal thickening is noted at the lung bases. Correlate clinically for evidence of fluid overload/mild congestive failure. 5. There are numerous bibasilar pulmonary nodule which measure up to 8 mm. Follow-up with a nonemergent chest CT is recommended in 3 months time for reassessment and dedicated assessment of the thorax. 6. A 5.2 cm densely calcified lesion in the left adnexa likely represents an exophytic fibroid. 7. Additional findings as above. ACT 112: Negative or not required by law. Electronically signed by: Gianluca Arreola M.D. 12/03/2020 1:22 PM Chest X-Ray 12/03/20 11:34 SINGLE VIEW CHEST CLINICAL HISTORY: Generalized abdominal pain. FINDINGS: An AP, portable, upright chest radiograph is compared to study dated 11/29/2020. The heart is mildly enlarged. The pulmonary vasculature is noncongested. Chronic interstitial thickening is similar to previous. No airsp sawyer consolidation or large pleural effusion is identified. Scarring/atelectasis is noted at the lung bases. No pneumothorax is seen. The skeletal structures are osteopenic. The bony thorax is grossly intact. IMPRESSION: No acute cardiopulmonary abnormality. ACT 112: Negative or not required by law. Electronically signed by: Gianluca Arreola M.D. 12/03/2020 12:16 PM Discharge Plan Visit Data Chief Complaint: Abdominal Pain Stated Complaint: ABDOMINAL DISCOMFORT ED Provider: Gianluca Jeronimo Prescriptions Prescriptions: No Action albuterol sulfate 90 mcg/actuation HFA aerosol inhaler 1 inh inhalation QID PRN (Reason: shortness of breath or wheezing) Qty: 1 RF: 2 nitrofurantoin monohyd/m-cryst [Macrobid] 100 mg capsule 100 mg PO BID 7 Days Qty: 14 RF: 0 omega 5-baf-zis-fish oil 120-180-600 mg capsule 1 cap PO BID RF: 0 mesalamine 800 mg tablet,delayed release (DR/EC) 800 mg PO TID RF: 0 cholecalciferol (vitamin D3) 25 mcg (1,000 unit) capsule 25 mcg PO BID RF: 0 calcium carbonate 400 mg calcium (1,000 mg) tablet,chewable 400 mg PO BID RF: 0 atenolol 25 mg tablet 25 mg PO QAM RF: 0 famotidine [Pepcid] 20 mg tablet 20 mg PO HS PRN (Reason: acid reflux) RF: 0 pantoprazole 40 mg tablet,delayed release (DR/EC) 40 mg PO QAM RF: 0 escitalopram oxalate 10 mg tablet 10 mg PO QAM RF: 0 cetirizine [Zyrtec] 10 mg Tablet 10 mg PO QAM RF: 0 acetaminophen [Tylenol Extra Strength] 500 mg Tablet 1,000 mg PO Q6H PRN (Reason: Pain) RF: 0
[2020-12-03 11:56] LABS: Basophils # (auto) 0.03 K/uL (0-0.2); Basophils % (auto) 0.2 %; Hematocrit (blood only) 38.9 % (37-47); Hemoglobin 13.9 g/dL (12.0-16.0); Immature Granulocytes # (auto) 0.05 K/uL (0.00-0.02); Immature Granulocytes % (auto) 0.4 %; Lymphocytes # (auto) 1.42 K/uL (1.2-3.4); Lymphocytes % (auto) 10.1 %; Mean Corpuscular Hemoglobin 32.5 pg (25-34); Mean Corpuscular Hgb Conc 35.7 g/dL (32-36); Mean Corpuscular Volume 90.9 fL (80-100); Mean Platelet Volume 9.4 fL (7.4-10.4); Neutrophils # (auto) 11.87 K/uL (1.4-6.5); Neutrophils % (auto) 84.3 %; Platelet Count 337 K/uL (130-400); RDW Coefficient of Variation 14.2 % (11.5-14.5); RDW Standard Deviation 47.8 fL (36.4-46.3); Red Blood Count 4.28 M/uL (4.2-5.4); White Blood Count 14.07 K/uL (4.8-10.8)
--- NOTE | 2020-12-03 12:17 | XRay Report ---
SINGLE VIEW CHEST CLINICAL HISTORY: Generalized abdominal pain. FINDINGS: An AP, portable, upright chest radiograph is compared to study dated 11/29/2020. The heart i s mildly enlarged. The pulmonary vasculature is noncongested. Chronic interstitial thickening is randa lar to previous. No airspace consolidation or large pleural effusion is identified. Scarring/atelecta sis is noted at the lung bases. No pneumothorax is seen. The skeletal structures are osteopenic. The bony thorax is grossly intact. IMPRESSION: No acute cardiopulmonary abnormality. ACT 112: Negative or not required by law. Electronically signed by: Gianluca Arreola M.D. 12/03/2020 12:16 PM
[2020-12-03 12:36] LABS: Albumin Level 3.1 gm/dl (3.4-5.0); Bilirubin,Total 1.2 mg/dl (0.2-1); Calcium 8.9 mg/dl (8.5-10.1); Creatinine Clr Calc Pharmacy 45.6 ml/min; Est GFR (African American) 70.5 ml/min; Est GFR (Non-African American) 60.9 ml/min; Total Protein 7.7 gm/dl (6.4-8.2)
[2020-12-03 12:37] LABS: Albumin Globulin Ratio 0.7 (0.9-2); Globulin 4.6 gm/dl (2.5-4.0); Troponin I 0.282 ng/ml (0-0.045)
[2020-12-03 12:42] LABS: Lyme Ab IgG w/WB Rflx Negative (Negative)
[2020-12-03 12:44] LABS: Lyme Ab IgM w/WB Rflx Positive (Negative)
--- NOTE | 2020-12-03 13:23 | CT Scan Report ---
CT SCAN OF THE ABDOMEN AND PELVIS WITH IV CONTRAST CLINICAL HISTORY: Lower abdominal pain. Fever. COMPARISON STUDY: Abdominal ultrasound dated 12/02/2020. TECHNIQUE: Following the IV administration of 93 cc of Optiray 320, CT scan of the abdomen and pelvi s is performed from the lung bases to the proximal femora. Images are reviewed in the axial, sagittal , and coronal planes. There was an IV malfunction with the initial injection. A second IV was placed and contrast was then administered without complication. A dose lowering technique was utilized adher ing to the principles of ALARA. CT DOSE: 298.03 mGy.cm FINDINGS: Lung bases: The heart is top normal in size and without pericardial effusion. There is bibasilar scar ring/atelectasis. Intralobular septal thickening is noted at the lung bases. There are numerous bilat eral pulmonary nodules which measure up to 8 mm. There is no airspace consolidation typical for pneum onia or pleural effusion. A fat-containing Bochdalek hernia is noted on the right. There is a small h iatal hernia. Liver: The contrast-enhanced liver is enlarged, measuring 20.8 cm in length. The Liver is otherwise n ormal in contour and attenuation. There is no intrahepatic biliary ductal dilatation. The hepatic vei ns and portal veins are patent. Periportal edema is noted. Gallbladder: The gallbladder is distended but otherwise normal in appearance. Spleen: Normal in size and attenuation. An 8 mm splenic hypodensity seen on image #53 is pathological ly indeterminant and statistically of doubtful significance. Pancreas: Unremarkable. Adrenal glands: Unremarkable. Kidneys: The contrast enhanced kidneys are normal in size and without hydronephrosis. The kidneys enh ance and excrete symmetrically. The renal collecting systems and ureters are filled with excreted IV contrast. Abdominal vasculature: The abdominal aorta is normal in course and caliber noting mild to moderate at herosclerotic calcification. Bowel: There is mild colonic diverticulosis without CT evidence of acute diverticulitis. No bowel obs truction is identified. The appendix is normal as visualized. Peritoneum: Trace free fluid is noted in the pelvis. No intraperitoneal free air is identified. Lymphadenopathy: None. Pelvic viscera: The bladder wall appears thickened and there is pericystic infiltration. The bladder contains excreted IV contrast. A 5.2 cm densely calcified lesion in the left adnexa likely represents an exophytic fibroid. Skeletal structures: The skeletal structures are osteopenic. No lytic or blastic lesions are seen. IMPRESSION: 1. Findings suggest cystitis. Correlate with clinical findings and urinalysis. 2. The liver is enlarged and there is mild periportal edema. 3. Mild colonic diverticulosis without CT evidence of acute diverticulitis. 4. Intralobular septal thickening is noted at the lung bases. Correlate clinically for evidence of fl uid overload/mild congestive failure. 5. There are numerous bibasilar pulmonary nodule which measure up to 8 mm. Follow-up with a nonemerge nt chest CT is recommended in 3 months time for reassessment and dedicated assessment of the thorax. 6. A 5.2 cm densely calcified lesion in the left adnexa likely represents an exophytic fibroid. 7. Additional findings as above. ACT 112: Negative or not required by law. Electronically signed by: Gianluca Arreola M.D. 12/03/2020 1:22 PM
[2020-12-03 13:25] LABS: Potassium 3.8 mmol/L (3.5-5.1)
[2020-12-03] MEDS ORDERED: cefTRIAXone SODIUM 1,000 MG/50 ML BAG IV STA (13:29)
[2020-12-03] MEDS ORDERED: DOCUSATE SODIUM 100 MG CAP PO PRN (14:16)
[2020-12-03 14:39] LABS: Appearance Urine Clear (Clear); Bacteria Urine Automated Negative (Negative); Bilirubin Urine Negative (Negative); Blood Urine Trace (Negative); Color Urine Yellow; Glucose Urine UA Negative (Negative); Ketones Urine 1+ (Negative); Leukocyte Esterase Urine Negative (Negative); Nitrite Urine Negative (Negative); Protein Urine Trace (Negative); RBC Urine Automated 0-4 /hpf (0-4); Specific Gravity Urine > 1.045 (1.000-1.030); Urobilinogen Urine Negative (Negative)
--- NOTE | 2020-12-03 15:03 | History & Physical Report ---
Date of Service December 03, 2020 Assessment & Plan (1) Abdominal pain: Plan: 75yo female presenting with lower abdominal discomfort which began after a colonoscopy on 11/22/20. CT Abdomen with diverticulosis without diverticulitis. Question of cystitis noted. Patient has had worsening of liver studies which may be cause of her abdominal discomfort -Continue to monitor abdominal pain -See additional workup as below (2) Elevated LFTs: Plan: Patient with abnormal liver studies - AST of 138 --> 226, ALT 144 --> 476, AP of 105 --> 278. Tbili mildly elevated at 1.2 from 0.7. Liver US from 12/02/20 with no significant abnormality in the RUQ, no gallstones or biliary ductal dilatation. CT of the abdomen performed today and contrast-enhanced liver without intrahepatic biliary ductal dilatation. ?Tick-borne illness -Check Hepatitis panel -Follow tick-workup sent from ER -Check ferritin and Acetaminophen levels -Repeat LFTs in AM - if worsened would repeat RUQUS (3) Elevated troponin: Plan: Patient with mildly elevated troponin of 0.282. EKG with non-specific ST changes present in anterior/lateral leads. Patient denies chest pain but has some exertional dyspnea and occasional chest tightness. -Telemetry monitoring -Trend Troponin q 8 hours x 3 or until peaks -Check 2D echo -Pending results patient should have an outpatient stress test -?Mild failure as cause of symptoms - HUNTER, congestion, hyponatremia -Check BNP -Echo as above (4) Hyponatremia: Plan: Mg=477. Was previously 133. No seizure or neurologic complaints. -Check urine and serum osm -Check urine Na -Repeat chemistry in AM (5) GERD (gastroesophageal reflux disease): Plan: Chronic. Well controlled -Continue Protonix 40mg po daily -Continue Pepcid PRN (6) Ulcerative colitis: Plan: Chronic. Well controlled -Continue Mesalamine 800mg po TID (7) Hypertension: Plan: Blood pressure mildly elevated -Continue home Atenolol -Continue to monitor Plan: F/E/N - Heplock. Check Mg/PO4 x 1, Heart healthy diet as tolerated Ppx - Lovenox Code - Full Dispo - Admit to medical with telemetry History of Present Illness Chief Complaint: abdominal pain Primary Care Provider: Jose Antonio Deleon MD Radha Tucker is a pleasant 75yo female with history fo HTN, HLP, Ulcerative Colitis and GERD. Patient had a colonoscopy performed on 11/22/20 for routine followup of colon polyps. Patient found to have a 5mm polyp in the descending colon s/p removal with a cold snare. Also with diverticulosis and non- bleeding internal hemorrhoids. Patient began feeling ill on 11/25/20 with high fever Tm of 102.8 as well as crampy, lower abdominal pain and nausea. Also with headache, body aches and fatigue. She has not eaten much over the last week. Also with complaints of HUNTER and mild SOB at rest, occasional chest tightness with exertion. Denies orthopnea, edema, weight gain, dysuria, hematuria. Patient had a telephone visit with her PCP on 11/29/20. Labs and CXR were ordered at that time. WBC from 11/29 normal. Ld=864. Cr elevated at 1.38. PEN=542, EXY=315. She was prescribed Macrobid for presumed UTI. She took the Macrobid from 11/29 - 12/02 - developed some diarrhea following antibiotic use as well as large red rash on posterior right knee and left neck. Patient still with fatigue, abdominal discomfort, poor appetite and nausea. ER Course: Ceftriaxone, Zofran, NSS Allergies Allergy/AdvReac Type Severity Reaction Status Date / Time SAWYER Inhibitors Allergy Intermediate lip Verified 12/03/20 12:21 swelling lisinopril Allergy Intermediate LIP Verified 12/03/20 12:21 SWELLING adhesive Allergy Mild SKIN Verified 12/03/20 12:21 IRRITATION latex Allergy Mild skin Verified 12/03/20 12:21 irritation Home Medications Medication Instructions Recorded Confirmed Type calcium carbonate 400 mg calcium 400 mg PO BID tab 11/09/19 12/03/20 History (1,000 mg) chewable tablet cholecalciferol (vitamin D3) 25 25 mcg PO BID cap 11/09/19 12/03/20 History mcg (1,000 unit) capsule omega 3-dha 120 mg-epa 180 mg-fish 1 cap PO BID cap 11/09/19 12/03/20 History oil 600 mg capsule albuterol sulfate 90 mcg/actuation 1 inh INHALATION QID PRN #1 ea 02/23/20 12/03/20 Rx aerosol inhaler mesalamine 800 mg tablet,delayed 800 mg PO TID tab 05/13/20 12/03/20 History release atenolol 25 mg tablet 25 mg PO QAM 11/15/20 12/03/20 History cetirizine 10 mg tablet (Zyrtec) 10 mg PO QAM 11/15/20 12/03/20 History escitalopram oxalate 10 mg tablet 10 mg PO QAM 11/15/20 12/03/20 History famotidine 20 mg tablet (Pepcid) 20 mg PO HS PRN 11/15/20 12/03/20 History pantoprazole 40 mg tablet,delayed 40 mg PO QAM 11/15/20 12/03/20 History release nitrofurantoin 100 mg PO BID 7 Days #14 cap 11/29/20 12/03/20 Rx monohydrate/macrocrystals 100 mg capsule (Macrobid) acetaminophen 500 mg tablet 1,000 mg PO Q6H PRN 12/03/20 12/03/20 History (Tylenol Extra Strength) Past Med/Surg History Medical History Allergy-induced asthma inhaler prn Anxiety Arthritis GERD (gastroesophageal reflux disease) Hyperlipidemia Hypertension Osteoporosis Tubular adenoma of colon Ulcerative colitis Vitamin D deficiency Surgical History History of bilateral cataract extraction History of breast biopsy benign History of dilatation and curettage History of removal of skin mole History of wisdom tooth extraction Family History Father Lung cancer Mother History of colon cancer Colon cancer Colitis Breast cancer Unknown Heart disease Grandfather (Maternal) Pulmonary embolism Stroke Other Myocardial infarction No family history of adverse response to anesthesia Denies family history of Ovarian cancer Prostate cancer Social History Smoking Status: Never smoker Second Hand Exposure: No; Hx Alcohol Use: Yes Alcohol type: wine Hx Substance Use: No Preferred Language: Iranian Communication Ability: Effective Visual Impairment: No Limitations Hearing Ability: Hard of Hearing Sales Development Executive Required: No Beliefs That Will Affect Care: None marital status: Current Living Situation: Spouse current occupational status: retired Feels Safe at Home: Yes Childhood Exposure to Second-Hand Smoke: No Dental Care, Regularly: Yes Physical Activity Frequency: Does not Exercise Seatbelt Use: always Sunscreen Use: Yes Assistive Devices: Glasses Review of Systems Review of Systems: All systems reviewed & are unremarkable except as noted in HPI & below Physical Exam Physical Exam: General: patient resting comfortably, NAD, non-toxic in appearance, AA&O x 4 Skin: warm, dry, intact, area of well-circumscribed, blanchable, erythematous rash noted on posterior right knee/thigh and posterior left neck HEENT: NC/AT, PERRL, EOMI, anicteric sclera, conjunctiva without injection, external ear normal to inspection and nontender, nares patent, dry lips and mucus membranes, dentition intact, no oropharyngeal lesions, neck supple, trachea midline, no LAD, no thyromegaly, no JVD Heart: +S1/S2, regular, no m/r/g Lungs: equal air entry bilaterally, +crackles in bilateral bases Abd: +BS, soft, NT/ND, no masses/organomegaly/ascites Ext: warm, 2+ pulses in UE/LE bilaterally, no clubbing/cyanosis or edema Neuro: nonfocal, patient AA&O x 4, speech intact, no facial droop, moving all extremities on command with equal strength 5/5 Results & Data Results & Data ([facility]) Vital Signs (Past 12 Hours) Vital Signs Temp Pulse Pulse Resp BP BP Pulse Ox 12/03/20 14:04 92 H 20 173/92 H 95 12/03/20 13:15 91 12/03/20 13:13 79 24 178/94 H 90 12/03/20 12:02 68 18 142/77 H 95 12/03/20 11:47 97 12/03/20 11:18 37.2 C 72 18 151/83 H 95 Laboratory Results Laboratory Results WBC 14.07 K/uL (4.8-10.8) H 12/03/20 11:40 RBC 4.28 M/uL (4.2-5.4) 12/03/20 11:40 Hgb 13.9 g/dL (12.0-16.0) 12/03/20 11:40 Hct 38.9 % (37-47) 12/03/20 11:40 MCV 90.9 fL (80-100) 12/03/20 11:40 MCH 32.5 pg (25-34) 12/03/20 11:40 MCHC 35.7 g/dL (32-36) 12/03/20 11:40 RDW Std Deviation 47.8 fL (36.4-46.3) H 12/03/20 11:40 RDW Coeff of Johnson 14.2 % (11.5-14.5) 12/03/20 11:40 Plt Count 337 K/uL (130-400) 12/03/20 11:40 MPV 9.4 fL (7.4-10.4) 12/03/20 11:40 Immature Gran % (Auto) 0.4 % 12/03/20 11:40 Neut % (Auto) 84.3 % 12/03/20 11:40 Lymph % (Auto) 10.1 % 12/03/20 11:40 Tyrrell % (Auto) 5.0 % 12/03/20 11:40 Eos % (Auto) 0.0 % 12/03/20 11:40 Baso % (Auto) 0.2 % 12/03/20 11:40 Neut # (Auto) 11.87 K/uL (1.4-6.5) H 12/03/20 11:40 Lymph # (Auto) 1.42 K/uL (1.2-3.4) 12/03/20 11:40 Tyrrell # (Auto) 0.70 K/uL (0.11-0.59) H 12/03/20 11:40 Eos # (Auto) 0.00 K/uL (0-0.5) 12/03/20 11:40 Baso # (Auto) 0.03 K/uL (0-0.2) 12/03/20 11:40 Immature Gran # (Auto) 0.05 K/uL (0.00-0.02) H 12/03/20 11:40 Sodium 129 mmol/L (136-145) L 12/03/20 11:40 Potassium 3.8 mmol/L (3.5-5.1) 12/03/20 13:02 Chloride 97 mmol/L (98-107) L 12/03/20 11:40 Carbon Dioxide 26 mmol/L (21-32) 12/03/20 11:40 Anion Gap 6.0 (3-11) 12/03/20 11:40 BUN 11 mg/dl (7-18) 12/03/20 11:40 Creatinine 0.91 mg/dl (0.6-1.2) 12/03/20 11:40 Est Cr Clr Drug Dosing 45.6 ml/min 12/03/20 11:40 Est GFR ( Amer) 70.5 ml/min 12/03/20 11:40 Est GFR (Non-Af Amer) 60.9 ml/min 12/03/20 11:40 BUN/Creatinine Ratio 12.0 (10-20) 12/03/20 11:40 Glucose 120 mg/dl (70-99) H 12/03/20 11:40 Lactate 1.8 mmol/L (0.4-2.0) 12/03/20 11:45 Calcium 8.9 mg/dl (8.5-10.1) 12/03/20 11:40 Total Bilirubin 1.2 mg/dl (0.2-1) H 12/03/20 11:40 AST 226 U/L (15-37) H 12/03/20 13:02 ALT 476 U/L (12-78) H 12/03/20 11:40 Alkaline Phosphatase 268 U/L (45-117) H 12/03/20 11:40 Troponin I 0.282 ng/ml (0-0.045) H* 12/03/20 11:40 Total Protein 7.7 gm/dl (6.4-8.2) 12/03/20 11:40 Albumin 3.1 gm/dl (3.4-5.0) L 12/03/20 11:40 Globulin 4.6 gm/dl (2.5-4.0) H 12/03/20 11:40 Albumin/Globulin Ratio 0.7 (0.9-2) L 12/03/20 11:40 Lipase 144 U/L (73-393) 12/03/20 11:40 Lyme Disease IgG Ab Negative (Negative) 12/03/20 11:40 Lyme Disease IgM Ab Positive (Negative) A 12/03/20 11:40 COVID-19 Eval Order Covid19 at [facility] 12/03/20 14:05 Impressions Abdomen/Pelvis CT 12/03/20 11:34 CT SCAN OF THE ABDOMEN AND PELVIS WITH IV CONTRAST CLINICAL HISTORY: Lower abdominal pain. Fever. COMPARISON STUDY: Abdominal ultrasound dated 12/02/2020. TECHNIQUE: Following the IV administration of 93 cc of Optiray 320, CT scan of the abdomen and pelvis is performed from the lung bases to the proximal femora. Images are reviewed in the axial, sagittal, and coronal planes. There was an IV malfunction with the initial injection. A second IV was placed and contrast was then administered without complication. A dose lowering technique was utilized adhering to the principles of ALARA. CT DOSE: 298.03 mGy.cm FINDINGS: Lung bases: The heart is top normal in size and without pericardial effusion. There is bibasilar scarring/atelectasis. Intralobular septal thickening is noted at the lung bases. There are numerous bilateral pulmonary nodules which measure up to 8 mm. There is no airspace consolidation typical for pneumonia or pleural effusion. A fat-containing Bochdalek hernia is noted on the right. There is a small hiatal hernia. Liver: The contrast-enhanced liver is enlarged, measuring 20.8 cm in length. The Liver is otherwise normal in contour and attenuation. There is no intrahepatic biliary ductal dilatation. The hepatic veins and portal veins are patent. Periportal edema is noted. Gallbladder: The gallbladder is distended but otherwise normal in appearance. Spleen: Normal in size and attenuation. An 8 mm splenic hypodensity seen on image #53 is pathologically indeterminant and statistically of doubtful significance. Pancreas: Unremarkable. Adrenal glands: Unremarkable. Kidneys: The contrast enhanced kidneys are normal in size and without hydronephrosis. The kidneys enhance and excrete symmetrically. The renal collecting systems and ureters are filled with excreted IV contrast. Abdominal vasculature: The abdominal aorta is normal in course and caliber noting mild to moderate atherosclerotic calcification. Bowel: There is mild colonic diverticulosis without CT evidence of acute diverticulitis. No bowel obstruction is identified. The appendix is normal as visualized. Peritoneum: Trace free fluid is noted in the pelvis. No intraperitoneal free air is identified. Lymphadenopathy: None. Pelvic viscera: The bladder wall appears thickened and there is pericystic infiltration. The bladder contains excreted IV contrast. A 5.2 cm densely calcified lesion in the left adnexa likely represents an exophytic fibroid. Skeletal structures: The skeletal structures are osteopenic. No lytic or blastic lesions are seen. IMPRESSION: 1. Findings suggest cystitis. Correlate with clinical findings and urinalysis. 2. The liver is enlarged and there is mild periportal edema. 3. Mild colonic diverticulosis without CT evidence of acute diverticulitis. 4. Intralobular septal thickening is noted at the lung bases. Correlate clinically for evidence of fluid overload/mild congestive failure. 5. There are numerous bibasilar pulmonary nodule which measure up to 8 mm. Follow-up with a nonemergent chest CT is recommended in 3 months time for reassessment and dedicated assessment of the thorax. 6. A 5.2 cm densely calcified lesion in the left adnexa likely represents an exophytic fibroid. 7. Additional findings as above. ACT 112: Negative or not required by law. Electronically signed by: Gianluca Arreola M.D. 12/03/2020 1:22 PM Chest X-Ray 12/03/20 11:34 SINGLE VIEW CHEST CLINICAL HISTORY: Generalized abdominal pain. FINDINGS: An AP, portable, upright chest radiograph is compared to study dated 11/29/2020. The heart is mildly enlarged. The pulmonary vasculature is noncongested. Chronic interstitial thickening is similar to previous. No airspace consolidation or large pleural effusion is identified. Scarring/atelectasis is noted at the lung bases. No pneumothorax is seen. The skeletal structures are osteopenic. The bony thorax is grossly intact. IMPRESSION: No acute cardiopulmonary abnormality. ACT 112: Negative or not required by law. Electronically signed by: Gianluca Arreola M.D. 12/03/2020 12:16 PM ECG Additional Comments: NSR at 75, normal axis, FT=279, QRS=90. AJf=424, ST irregularities/depressions in anterior, lateral leads. No previous studies for comparison Code Status & VTE Plan VTE Prophylaxis Plan VTE Prophylaxis will be ordered: Yes PG Care Time/CCT Total # of Minutes Spent Total Time Spent with Patient: Total time spent is greater than 50% in coor dination of care (as documented) at patient's floor/unit and/or counseling patient: Coding Level of Care Code 31307 Initial Inpt Care Lvl 3 Diagnoses GERD (gastroesophageal reflux disease) K21.9 Hypertension I10 Elevated LFTs R79.89 Elevated troponin R77.8 Abdominal pain R10.9 Hyponatremia E87.1 Ulcerative colitis K51.90
[2020-12-03 15:19] LABS: Prothrombin Time 10.3 Seconds (9.0-12.0)
[2020-12-03] MEDS ORDERED: ALBUTEROL HFA 8 GM INHALER INH PRN (18:37)
[2020-12-03] MEDS ORDERED: FAMOTIDINE 20 MG TAB PO PRN (18:37)
[2020-12-03 19:17] LABS: Ferritin 6019.7 ng/ml (8-388); Magnesium 2.2 mg/dl (1.8-2.4); Phosphorus 2.1 mg/dl (2.5-4.9)
[2020-12-03] MEDS: MESALAMINE 800 MG TABCR PO SCH ×2 (19:34→20:09)
[2020-12-03] MEDS: DOXYCYCLINE HYCLATE 100 MG in DEXTROSE 5% 100 ML IV SCH (19:54)
[2020-12-03] MEDS ORDERED: ENOXAPARIN INJ 40 MG/0.4 ML SYR SQ SCH (21:00)
[2020-12-03] MEDS ORDERED: ACETAMINOPHEN 325 MG TAB PO PRN (23:15)
[2020-12-04] MEDS: DOXYCYCLINE HYCLATE 100 MG in DEXTROSE 5% 100 ML IV SCH ×2 (06:17→19:29)
[2020-12-04 06:58] LABS: Hematocrit (blood only) 34.5 % (37-47); Hemoglobin 11.9 g/dL (12.0-16.0); Mean Corpuscular Hemoglobin 31.6 pg (25-34); Mean Corpuscular Hgb Conc 34.5 g/dL (32-36); Mean Corpuscular Volume 91.8 fL (80-100); Mean Platelet Volume 9.1 fL (7.4-10.4); Platelet Count 347 K/uL (130-400); RDW Coefficient of Variation 14.2 % (11.5-14.5); RDW Standard Deviation 48.2 fL (36.4-46.3); Red Blood Count 3.76 M/uL (4.2-5.4)
[2020-12-04 07:24] LABS: Basophils # (auto) 0.02 K/uL (0-0.2); Basophils % (auto) 0.1 %; Immature Granulocytes # (auto) 0.13 K/uL (0.00-0.02); Immature Granulocytes % (auto) 0.8 %; Lymphocytes # (auto) 1.54 K/uL (1.2-3.4); Lymphocytes % (auto) 9.7 %; Monocytes % (auto) 3.8 %; Neutrophils # (auto) 13.51 K/uL (1.4-6.5); Neutrophils % (auto) 85.6 %
[2020-12-04 07:34] LABS: Albumin Level 2.3 gm/dl (3.4-5.0); BUN Creatinine Ratio 12.5 (10-20); Bilirubin Direct 0.3 mg/dl (0-0.2); Calcium 8.3 mg/dl (8.5-10.1); Creatinine Clr Calc Pharmacy 53.8 ml/min; Potassium 3.7 mmol/L (3.5-5.1)
[2020-12-04] MEDS: PANTOprazole 40 MG TAB PO SCH (07:39)
[2020-12-04] MEDS: ESCITALOPRAM OXALATE 10 MG TAB PO SCH (07:39)
[2020-12-04] MEDS: CETIRIZINE HCL 10 MG TABLET PO SCH (07:40)
[2020-12-04] MEDS: MESALAMINE 800 MG TABCR PO SCH ×3 (07:40→20:20)
[2020-12-04 07:44] LABS: Bilirubin,Total 0.9 mg/dl (0.2-1)
[2020-12-04] MEDS ORDERED: ATENOLOL 25 MG TABLET PO SCH (09:00)
--- NOTE | 2020-12-04 09:03 | XCELERA ---
[id number]
--- NOTE | 2020-12-04 09:28 | Electrocardiogram Report ---
Test Reason : Blood Pressure : / mmHG Vent. Rate : 075 BPM Atrial Rate : 075 BPM P-R Int : 166 ms QRS Dur : 090 ms QT Int : 394 ms P-R-T Axes : 076 007 -06 degrees QTc Int : 439 ms Normal sinus rhythm Nonspecific T wave abnormality Inferior leads Abnormal ECG No previous ECGs available Confirmed by Beltran Montiel ([id number]) on 12/04/2020 9:27:36 AM Referred By: REFERRED SELF Confirmed By:Beltran Montiel
[2020-12-04] MEDS ORDERED: FUROSEMIDE 20 MG in SYRINGE 0 ML IV ONE (11:15)
--- NOTE | 2020-12-04 11:50 | CT Scan Report ---
CT chest diagnostic wo con CT DOSE: 387.50 mGycm CLINICAL HISTORY: 75 years-old Female with hypoxemia. Acute hypoxia. Bilateral pulmonary nodules. TECHNIQUE: Multiaxial CT images of the chest were performed without contrast. A dose lowering techni que was utilized adhering to the principles of ALARA. COMPARISON: CT abdomen pelvis 12/03/2020 FINDINGS: Heterogeneity of the thyroid. There are a few prominent anterior mediastinal and subcarinal lymph nod es measuring up to 9 mm. No pathologically enlarged lymph nodes. The heart is normal in size. No thor acic aortic aneurysm. Small layering pleural effusions are new from comparison along with dependent b ibasilar consolidation. Mild bilateral intralobular septal thickening, most pronounced in the lung ba ses. The previously described bibasilar solid pulmonary nodules are partially obscured by the consoli dation within the lung bases. 3 mm solid nodule of the right middle lobe on image 198. 7 mm subsolid nodule of the superior segment left lower lobe on image 109 is presently gland graft attenuating with a 3 mm central solid nodular focus. The central airways are patent. No pneumoperitoneum. No acute process of the imaged upper abdomen. Unremarkable soft tissues. No acut e fracture. Degenerative changes of the shoulders and spine. IMPRESSION: 1. Mild pulmonary edema with interval development of small pleural effusions and dependent bibasilar consolidation suggestive of atelectasis. Pneumonitis considered less likely. 2. The solid pulmonary nodules within the lung bases measuring up to 8 mm described on yesterday's CT abdomen and pelvis are mostly obscured by consolidation. 3. 7 mm subsolid nodule of the superior segment left lower lobe. Please refer to below summary of Fleischner criteria recommendations for follow-up of incidental CT n odules (Malvin Martinez, Guidelines for management of small pulmonary nodules detected on CT scans: A sta tement from the Fleischner Society, Radiology 237: [phone].) Multiple nodules size: <6 mm * Low risk patients: no routine follow-up * high risk patients: optional CT at 12 months Multiple nodules size: 6-8 mm * Low risk patients: follow-up at 3-6 months, then consider further follow-up at 18-24 months * high risk patients: follow-up at 3-6 months, then at 18-24 months if no change Multiple nodules size: >8 mm * Low risk patients: follow-up at 3-6 months, then consider further follow-up at 18-24 months * high risk patients: follow-up at 3-6 months, then at 18-24 months if no change Note: newly detected indeterminate nodule in persons 35 years of age or older. * Low risk patients: minimal or absent history of smoking and/or other known risk factors * high risk patients: history of smoking or of other known risk factors (e.g. first degree relative with lung cancer, or exposure to asbestos, radon, uranium) * if a nodule up to 8 mm is partly solid or is ground glass further follow-up is required after 24 m onths to exclude possible slow growing adenocarcinoma (SHANTA) SUBSOLID NODULES Solitary part-solid nodule * nodule size <6 mm - no CT follow-up required * nodule size >=6 mm - follow-up CT at 3-6 months. If unchanged, and solid component remains <6 mm, then annual follow-up for 5 years The above report was generated using voice recognition software. It may contain grammatical, syntax o r spelling errors. ACT 112: Negative or not required by law. Electronically signed by: Kai Valencia M.D. 12/04/2020 11:48 AM
[2020-12-04] MEDS: ASPIRIN 81 MG ECTAB PO SCH (12:09)
[2020-12-04] MEDS: ENOXAPARIN INJ 60 MG/0.6 ML SYR SQ SCH ×2 (12:10→22:30)
[2020-12-04 13:54] LABS: Troponin I 0.156 ng/ml (0-0.045)
--- NOTE | 2020-12-04 14:56 | Hospitalist Progress Note ---
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 Western blot pending * Patient on doxycycline. Continue this * Likely the cause of her fever with leukocytosis. * Patient with transaminitis. Anaplasmosis smear preliminarily negative. PCR pending. We will add babesiosis testing as treatment would be different (would need addition of azithromycin and Mepron) * Blood cultures showing no growth after 24 hours. Final- pending * Although patient with persistent leukocytosis, she has been on antibiotic therapy now for less than 24 hours and clinically claims that she is feeling better. No change in treatment plan at this time (2) Elevated troponin: Plan: * Suspect NSTEMI secondary to supply demand ischemia rather than unstable plaque given active infection--treat medically * Patient on chronic atenolol. Will transition to metoprolol as more cardiosel ective * Add aspirin * Treatment dose Lovenox 648 hours * Obtain lipid panel in the a.m. for risk stratification. Hold off on statin therapy for now given mildly elevated LFTs (which is likely due to tickborne illness), but would likely benefit from added statin in the future * Given wall motion abnormality seen on echo, consult cardiology. Suspect will need outpatient work-up. Patient recommendations (3) Elevated liver enzymes: Plan: * Right upper quadrant ultrasound showing no acute pathology * LFTs downtrending * Suspect related to tickborne illness * See above (4) Acute hyponatremia: Plan: * Sodium currently 133 * Clinically, S/S volume overload open disease BNP 12,356, patient having dyspnea on exertion and a cough, and requiring supplemental oxygen) * Will give 1 dose of IV Lasix now and follow labs/symptoms closely * If patient remains hyponatremicwe will need to obtain urine/serum osmolality, urine electrolytes, urine creatinine along with a TSH. Plan: * Plan of care discussed with Dr. Pickett Admission and Anticipated Discharge Date Admission Date: December 03, 2020 Subjective Mrs. Tucker is a 75-year-old white female who is relatively healthy with a p ast medical history of HTN, UC, GERD. She was hospitalized yesterday with fever of unknown origin after presenting to the ED with a temp of 102.8. White blood cell count was elevated at 14.7. LFTs were elevated with a total bilirubin of 1.2, AST of 103, and an ALT of 476. Chest x-ray showed no acute cardiopulmonary process. CT of the abdomen and pelvis showed pulmonary nodules with a distended gallbladder but no overt intra-abdominal process. Her Lyme IgM has subsequently come back positive and she is now on doxycycline. Was started on Macrobid empirically for presumed UTI by PCP 2 days [employer]. Subsequently developed a rash on the left side of her neck, right popliteal space, and left thigh. No reported tick bite to her knowledge. Preliminary anaplasmosis screen negative. PCR pending. White blood cell count remains elevated at 15.8. No fever spikes in the overnight hours. She has been requiring supplemental oxygen to maintain a pulse ox in the mid 90s. She does not chronically wear O2 and has no reported history of pulmonary disease. BNP upon arrival was 12,356. CXR/CT did show pulmonary vascular congestion. Her troponin was elevated 0.28 with a follow-up troponin do wntrending at 0.27. No EKG changes. Patient denies chest pain, orthopnea, PND or edema of the lower extremities. She has had a dry cough X 4 weeks. Has never had a stress test/heart catheterization. No known cardiac history. EKG done in the ED shows no acute ST/T wave changes. An echocardiogram subsequently obtained showing a preserved EF of 55 to 60% with a small area of severe hypokinesia in the mid inferior lateral wall. Review of Systems Review of Systems: All systems reviewed and are unremarkable except as noted in HPI and below Reports fevers, chills, myalgias, headache, nausea without emesis and a rash on the left side of her neck/right popliteal space/left thigh. Despite hypoxemia, denies shortness of breath at rest. Does have HUNTER with a dry cough. Otherwise, denies nasal congestion, sore throat, chest pain, shortness of breath at rest, abdominal pain, vomiting, dysuria, hematuria, frequency. Physical Exam Physical Exam: General: Resting comfortably in her hospital bed. Does not appear ill or toxic Neck: No JVD. Negative hepatojugular reflex Cardiac: RRR 2/6 ANJALI Lungs: CTA without W/R/R Abdomen: Normoactive X4. Soft and nontender in all quadrants. Extremities: No peripheral clubbing cyanosis or edema Neuro: A&O X4 cranial nerves II through XII are grossly intact no focal neuro deficits Skin: 3 separate macular/erythematous lesions noted on the left side of the neck that spans into the occipital region/hairline, the left thigh approximately the size of a $0.50 piece, and the right popliteal space (this 1 with some mild central clearing). Seems very consistent with erythema migrans. No rolled edges. Results & Data Results & Data ([facility]) Vital Signs (Past 12 Hours) Vital Signs Temp Pulse Pulse Resp BP BP Pulse Ox 12/04/20 08:29 37.0 C 64 20 120/67 95 12/04/20 07:10 69 12/04/20 03:23 37.3 C 83 18 137/72 97 Laboratory Results 12/04/20 06:45 12/04/20 06:45 BNP 12,356 Diagnostic Findings CXR and CT of the abdomen and pelvis reviewed Liver ultrasound done showing no acute pathology Echocardiogram shows a preserved EF of 55 to 60% with a small severe hypokinetic area of the inferior lateral wall with moderate MR and mild TR ECG Additional Comments: NSR with a rate of 75 bpm. Normal axis. No acute ST/T wave changes. PG Care Time/CCT Total # of Minutes Spent Total Time Spent with Patient: Total time spent is greater than 50% in coordination of care (as documented) at patient's floor/unit and/or counseling patient: [place] [address] Subseq Hosp Care Lvl 3 Patient Type Established History Detailed Exam Detailed Medical Decision Making High Complexity Diagnoses Lyme borreliosis A69.20 Elevated troponin R77.8 Elevated liver enzymes R74.8 Acute hyponatremia E87.1 Time Spent (min) 60
--- NOTE | 2020-12-04 14:57 | Cardiology Consultation ---
Date of Consultation December 04, 2020 Assessment & Plan (1) Elevated troponin: Mild/declining troponin elevation initially suggestive of demand ischemia with no cardiopulmonary symptoms and benign initial ECG. However, she does have new inferior T wave inversions on ECG today and has a small but unexplained wall motion abnormality on her echocardiogram, raising the possibility of an active cardiac process. No evidence of evolving major cardiac event with normal CK and minimal/declining troponin elevation, but prudent to manage as presumed coronary artery disease. Agree with aspirin and beta-darryl therapy. Holding on statin given her elevated LFTs. Would expect Lyme carditis to be more global on echocardiogram with ongoing troponin/CK elevation during this acute illness phase, but focal myocardial involvement is a possibility. Once her acute illness has passed, would further risk stratify with dobutamine stress echocardiogram (she is not a good candidate for a treadmill test given her left knee arthralgias). In the meantime, would continue to observe overnight and obtain yet another ECG and set of enzymes (troponin/CK) in the morning. Further recommendations regarding the timing of stress testing pending results of these. (2) Abnormal echocardiogram: Small mid inferolateral area of severe hypokinesis is an unusual location for an infarct, but the very localized nature of the wall motion abnormality weighs against Lyme myocarditis. There is a small chance this is a congenital finding, but would presume this is a result of myocardial ischemia/small infarct until proven otherwise. Her LV systolic function is preserved. (3) Lyme borreliosis: (4) Hypertension: BP initially hypertensive, normotensive today as she is feeling better. Addition of beta-darryl will be beneficial as well. Will continue to follow along and reevaluate patient tomorrow. Please contact if any change in her clinical status in the meantime. Thank you. History of Present Illness Reason for Consultation: nstemi Requesting Physician: Ade Hernandes DO Attending Physician: Ade Hernandes DO History of Present Illness 75-year-old woman with history of medical problems but no known cardiac history who was admitted yesterday (12/03/2020) with apparent acute Lyme disease, due to an incidentally noted mild troponin elevation an echocardiogram was obtained which showed a small focal wall motion abnormality. Several years ago the patient noted some anginal type chest discomfort when walking up a hill, but this resolved with rest and she has not noted any chest symptoms since that time. She does note being more fatigued in general with reduced exercise tolerance but denies any severe dyspnea, orthopnea, PND, or ankle edema. No lightheadedness, presyncope, or syncope. Since her colonoscopy last week, she has had a variety of symptoms including malaise, fever to 103, classic erythema migrans rash on the left leg (and possibly left neck), and vague abdominal discomfort. No chest pain during this time. At the time of my evaluation today, she was comfortable with no specific somatic complaints. Allergies Allergy/AdvReac Type Severity Reaction Status Date / Time SAWYER Inhibitors Allergy Intermediate lip Verified 12/03/20 12:21 swelling lisinopril Allergy Intermediate LIP Verified 12/03/20 12:21 SWELLING adhesive Allergy Mild SKIN Verified 12/03/20 12:21 IRRITATION latex Allergy Mild skin Verified 12/03/20 12:21 irritation Home Medications Medication Instructions Recorded Confirmed Type calcium carbonate 400 mg calcium 400 mg PO BID tab 11/09/19 12/03/20 History (1,000 mg) chewable tablet cholecalciferol (vitamin D3) 25 25 mcg PO BID cap 11/09/19 12/03/20 History mcg (1,000 unit) capsule omega 3-dha 120 mg-epa 180 mg-fish 1 cap PO BID cap 11/09/19 12/03/20 History oil 600 mg capsule albuterol sulfate 90 mcg/actuation 1 inh INHALATION QID PRN #1 ea 02/23/20 12/03/20 Rx aerosol inhaler mesalamine 800 mg tablet,delayed 800 mg PO TID tab 05/13/20 12/03/20 History release atenolol 25 mg tablet 25 mg PO QAM 11/15/20 12/03/20 History cetirizine 10 mg tablet (Zyrtec) 10 mg PO QAM 11/15/20 12/03/20 History escitalopram oxalate 10 mg tablet 10 mg PO QAM 11/15/20 12/03/20 History famotidine 20 mg tablet (Pepcid) 20 mg PO HS PRN 11/15/20 12/03/20 History pantoprazole 40 mg tablet,delayed 40 mg PO QAM 11/15/20 12/03/20 History release nitrofurantoin 100 mg PO BID 7 Days #14 cap 11/29/20 12/03/20 Rx monohydrate/macrocrystals 100 mg capsule (Macrobid) acetaminophen 500 mg tablet 1,000 mg PO Q6H PRN 12/03/20 12/03/20 History (Tylenol Extra Strength) Patient History Medical History Allergy-induced asthma inhaler prn Anxiety Arthritis GERD (gastroesophageal reflux disease) Hyperlipidemia Hypertension Osteoporosis Tubular adenoma of colon Ulcerative colitis Vitamin D deficiency Surgical History History of bilateral cataract extraction History of breast biopsy benign History of dilatation and curettage History of removal of skin mole History of wisdom tooth extraction Family History History of colon cancer Mother Colon cancer Mother Colitis Mother No family history of adverse response to anesthesia Heart disease Unknown Myocardial infarction Breast cancer Mother Lung cancer Father Pulmonary embolism Grandfather (Maternal) Stroke Grandfather (Maternal) Denies family history of Ovarian cancer Prostate cancer Social History Smoking Status: Never smoker Second Hand Exposure: Yes (As a Child); Hx Alcohol Use: Yes Alcohol type: wine Hx Substance Use: No Preferred Language: Lithuanian Communication Ability: Effective Visual Impairment: No Limitations Hearing Ability: Hard of Hearing Ad Copy Writer Required: No Beliefs That Will Affect Care: None marital status: Current Living Situation: Spouse current occupational status: retired Feels Safe at Home: Yes Childhood Exposure to Second-Hand Smoke: No Dental Care, Regularly: Yes Physical Activity Frequency: Does not Exercise Seatbelt Use: always Sunscreen Use: Yes Assistive Devices: Oxygen - Continuous Physical Exam Physical Exam: Normal habitus elderly white female in no distress. T-max 101.7 degrees, afebrile currently. Mildly hypertensive yesterday, normotensive today. Pulse currently 64 bpm and regular without ectopy. Skin: Erythema migrans type rash posterior right knee and left neck. No ecchymoses or generalized lesions. HEENT: unremarkable. Neck: no JVD or carotid bruits. Lungs: Few crackles left base but no wheezing and generally clear. Respirations unlabored. Cardiac: regular rhythm, 2/6 holosystolic murmur heard only in the axilla, no diastolic murmur or gallop. Abdomen: No guarding or rigidity. No focal tenderness. Extremities: no edema, pulses intact. Neurologic: normal affect and conversation, nonfocal. Results & Data ([facility]) Vital Signs (Past 12 Hours) Vital Signs Temp Pulse Pulse Resp BP BP Pulse Ox 12/04/20 08:29 98.6 F 64 20 120/67 95 12/04/20 07:10 69 12/04/20 03:23 99.1 F 83 18 137/72 97 Laboratory Results Mild leukocytosis with white count 15.8, hemoglobin 11.9, normal platelet count. Sodium 133, otherwise normal electrolytes, BUN 10, creatinine 0.82. AST 103, ALT 271. Troponin 0.28, 0.27, 0.15. CK 53. Diagnostic Findings Echocardiogram shows normal LV systolic function (EF 55 to 60%) with a small area of severe hypokinesis in the mid inferolateral wall, all other kramer move normally. Moderate right regurgitation with moderately dilated left atrium and mild tricuspid regurgitation with moderate pulmonary hypertension. ECG yesterday showed sinus rhythm with minor T wave flattening in the inferior leads, otherwise unremarkable. No prior comparison ECG available. ECG today showed inferior T wave inversions which are new. Chest x-ray on admission unremarkable. CT of the chest showed mild pulmonary edema and small pleural effusions with atelectasis. PG Care Time/CCT Total # of Minutes Spent Total Time Spent with Patient: Total time spent is greater than 50% in coordination of care (as documented) at patient's floor/unit and/or counseling patient: Coding Level of Care Code 19695 Initial Inpt Care Lvl 3 Diagnoses Elevated troponin R77.8 Abnormal echocardiogram R93.1 Lyme borreliosis A69.20 Hypertension I10
--- NOTE | 2020-12-04 15:42 | Electrocardiogram Report ---
Test Reason : Blood Pressure : / mmHG Vent. Rate : 062 BPM Atrial Rate : 062 BPM P-R Int : 172 ms QRS Dur : 094 ms QT Int : 440 ms P-R-T Axes : 061 020 -42 degrees QTc Int : 446 ms Normal sinus rhythm Incomplete right bundle branch block T wave abnormality, consider inferior ischemia Abnormal ECG When compared with ECG of 03-DEC-2020 11:43, Inverted T waves have replaced nonspecific T wave abnormality in Inferior leads Confirmed by Beltran Montiel ([id number]) on 12/04/2020 3:42:19 PM Referred By: REFERRED SELF Confirmed By:Beltran Montiel
[2020-12-05] MEDS: DOXYCYCLINE HYCLATE 100 MG in DEXTROSE 5% 100 ML IV SCH ×2 (06:21→18:26)
[2020-12-05] MEDS: CETIRIZINE HCL 10 MG TABLET PO SCH (07:58)
[2020-12-05] MEDS: PANTOprazole 40 MG TAB PO SCH (07:58)
[2020-12-05] MEDS: MESALAMINE 800 MG TABCR PO SCH ×3 (07:59→20:00)
[2020-12-05] MEDS: ASPIRIN 81 MG ECTAB PO SCH (07:59)
[2020-12-05] MEDS: ESCITALOPRAM OXALATE 10 MG TAB PO SCH (07:59)
[2020-12-05 08:19] LABS: Basophils # (auto) 0.03 K/uL (0-0.2); Basophils % (auto) 0.4 %; Eosinophils # (auto) 0.27 K/uL (0-0.5); Eosinophils % (auto) 3.2 %; Hematocrit (blood only) 34.9 % (37-47); Hemoglobin 12.1 g/dL (12.0-16.0); Immature Granulocytes # (auto) 0.06 K/uL (0.00-0.02); Immature Granulocytes % (auto) 0.7 %; Lymphocytes # (auto) 1.54 K/uL (1.2-3.4); Mean Corpuscular Hemoglobin 31.7 pg (25-34); Mean Corpuscular Hgb Conc 34.7 g/dL (32-36); Mean Corpuscular Volume 91.4 fL (80-100); Mean Platelet Volume 8.8 fL (7.4-10.4); Monocytes # (auto) 0.86 K/uL (0.11-0.59); Monocytes % (auto) 10.1 %; Neutrophils # (auto) 5.78 K/uL (1.4-6.5); Neutrophils % (auto) 67.6 %; Platelet Count 412 K/uL (130-400); RDW Coefficient of Variation 14.4 % (11.5-14.5); RDW Standard Deviation 48.1 fL (36.4-46.3); Red Blood Count 3.82 M/uL (4.2-5.4); White Blood Count 8.54 K/uL (4.8-10.8)
[2020-12-05 08:50] LABS: Albumin Level 2.6 gm/dl (3.4-5.0); BUN Creatinine Ratio 15.1 (10-20); Calcium 8.4 mg/dl (8.5-10.1); Creatinine Clr Calc Pharmacy 47.9 ml/min; Est GFR (African American) 76.6 ml/min; Est GFR (Non-African American) 66.1 ml/min; Magnesium 2.3 mg/dl (1.8-2.4); Potassium 3.3 mmol/L (3.5-5.1)
[2020-12-05 08:55] LABS: Albumin Globulin Ratio 0.7 (0.9-2); Bilirubin,Total 0.7 mg/dl (0.2-1); Globulin 3.8 gm/dl (2.5-4.0); Total Protein 6.4 gm/dl (6.4-8.2)
[2020-12-05] MEDS ORDERED: METOPROLOL SUCC 25MG EXT REL TAB PO SCH (09:00)
[2020-12-05 09:39] LABS: Hepatitis B Surf Ag Rflx Conf Neg (Neg)
[2020-12-05 09:42] LABS: Troponin I 0.105 ng/ml (0-0.045)
[2020-12-05 10:08] LABS: Hepatitis C IgG 13Yrs+Old_Rflx Neg (Neg)
--- NOTE | 2020-12-05 10:19 | Cardiology Progress Note ---
Date of Service December 05, 2020 Assessment & Plan (1) Elevated troponin: Plan: Mild/declining troponin elevation with normal CK and mild transient inferior T wave changes. No chest pain at any time. Small focal wall motion abnormality on echo remains unexplained. Will order dobutamine stress echocardiogram to rule out occlusive coronary disease (which could cause demand ischemia in the context of fever/hypertension, etc.). Alternatively, if dobutamine stress echo was negative, would suspect possible Lyme carditis. If this is the case, her enzymes are improving as she receives appropriate treatment for her acute Lyme disease. (2) Abnormal echocardiogram: Plan: Small focal wall motion abnormality, infarct versus Lyme carditis versus congenital? Her LV systolic function is preserved. Dobutamine stress echocardiogram today. (3) Lyme borreliosis: (4) Hypertension: Plan: Given episodic tachycardia and labile BP, could increase beta-darryl further (preferably after her dobutamine stress echo). Further recommendations based on results of her dobutamine stress echocardiogram. Will continue to follow. Admission and Anticipated Discharge Date Admission Date: December 03, 2020 Subjective Somewhat anxious but with no somatic complaints. Denies chest pain at any time. Her abdominal discomfort has resolved. No subjective palpitations, lightheadedness, or dyspnea. Telemetry showed sinus rhythm in the 70-110 bpm range. BP has been mildly labile. Afebrile overnight. Physical Exam Physical Exam: No distress. Afebrile. T-max 101.7 degrees, afebrile currently. BP mildly labile, normotensive and mildly hypertensive. Pulse currently 84 bpm and regular without ectopy. Skin: Erythema migrans type rash posterior right knee. No ecchymoses or generalized lesions. HEENT: unremarkable. Neck: no JVD or carotid bruits. Lungs: Clear bilaterally. Respirations unlabored. Cardiac: regular rhythm, 2/6 holosystolic murmur heard only in the axilla, no diastolic murmur or gallop. Abdomen: No guarding or rigidity. No focal tenderness. Extremities: no edema, pulses intact. Neurologic: normal affect and conversation, nonfocal. Results & Data ([facility]) Vital Signs (Past 12 Hours) Vital Signs Temp Pulse Pulse Resp BP BP Pulse Ox 12/05/20 08:24 98.6 F 83 16 158/83 H 96 12/05/20 07:50 93 H 08/02/21 03:26 98.1 F 70 19 163/75 H 95 12/04/20 23:06 99.0 F 69 18 146/80 H 99 12/04/20 22:19 57 L Laboratory Results Troponin has further declined (0.156 yesterday, 0.105 today). CK today was 45. Diagnostic Findings ECG today showed sinus rhythm with minor inferior T wave flattening. Compared with yesterday, mild inferior T wave inversion resolved. PG Care Time/CCT Total # of Minutes Spent Total Time Spent with Patient: Total time spent is greater than 50% in coordination of care (as documented) at patient's floor/unit and/or counseling patient: Coding Level of Care Code 76837 Subseq Hosp Care Lvl 3 Diagnoses Elevated troponin R77.8 Abnormal echocardiogram R93.1 Lyme borreliosis A69.20 Hypertension I10
[2020-12-05] MEDS ORDERED: METOPROLOL TARTRATE 1 MG/ML VIAL IV ONE (10:29)
[2020-12-05] MEDS ORDERED: ATROPINE SULFATE 0.1 MG/ML 10ML SYR IV ONE (10:29)
[2020-12-05] MEDS ORDERED: DOBUTamine HCL 12.5 MG/ML 20 ML VIAL IV ONE (10:29)
[2020-12-05] MEDS: ENOXAPARIN INJ 60 MG/0.6 ML SYR SQ SCH ×2 (12:27→22:49)
[2020-12-05] MEDS ORDERED: FUROSEMIDE 20 MG in SYRINGE 0 ML IV ONE (13:30)
[2020-12-05] MEDS ORDERED: POTASSIUM CHLORIDE CRTAB 20 MEQ TABCR PO ONE (13:30)
[2020-12-05] MEDS ORDERED: METOPROLOL SUCC 25MG EXT REL TAB PO ONE (16:07)
--- NOTE | 2020-12-05 16:21 | Hospitalist Progress Note ---
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 Western blot pending * Patient on doxycycline. Significant favorable response noted (white blood cell count normalized, patient has defervesced and clinically symptoms have re solved). continue this * Likely the cause of her fever with leukocytosis. * Patient with transaminitis. Anaplasmosis smear preliminarily negative. PCR pending. babesiosis testing pending-treatment would be different (would need addition of azithromycin and Mepron) * Blood cultures- NG * plan for likely D/C tomorrow (2) Elevated troponin: Plan: * Suspect NSTEMI secondary to supply demand ischemia rather than unstable plaque given active infection--treat medically * Atenolol converted to metoprolol as more cardiac selective. Will uptitrate * aspirin added * Treatment dose Lovenox x48 hours * lipid panel obtained for risk stratification. Hold off on statin therapy for now given mildly elevated LFTs (which is likely due to tickborne illness), but would likely benefit from added statin in the future * Echo with wall motion abnormality. Dobutamine stress testing done- results pending (3) Elevated liver enzymes: Plan: * Right upper quadrant ultrasound showing no acute pathology * LFTs downtrending * Suspect related to tickborne illness * See above (4) Acute hyponatremia: Plan: * Sodium currently 136 * Clinically, S/S volume overload open disease BNP 12,356, patient having dyspnea on exertion and a cough, and requiring supplemental oxygen) * given 1 addition dose of lasix * If patient remains hyponatremicwe will need to obtain urine/serum osmolality, urine electrolytes, urine creatinine along with a TSH. (5) Hypoxemia: Plan: * [place] [address] * pt requring 1L 02 and her HUNTER has resolved s/p lasix. * 1 addition dose of lasix today * attempt to down titrate/discontinue supplemental O2 * echo done- preserved EF. no right sided heart strain. PE unlikely given no tachycardia and resolution of symptoms following lasix. If hypoxemia persistent following lasix and removal of O2, will obtain CTA but CT w/o contrast shows PVC and likely cause of symptoms (again, improved/resolved following lasix) Plan: * Plan discussed with Dr. Carlisle * Plan for likely discharge within the next 18 to 24 hours Admission and Anticipated Discharge Date Admission Date: December 03, 2020 Subjective Patient seen on daily rounds today. Overall, reports significant improvement in symptomatology. No longer having subjective or objective fevers. No longer with headaches, body aches and feels "back to normal". WBC count has normalized Dobutamine stress test performed this morningawaiting results Seen by cardiology who recommends uptitrating beta-darryl Patient given 20 mg of IV Lasix yesterday for some mild pulmonary vascular congestion seen on CT scan with an elevated BNP of 12,356 upon presentation. Her dyspnea on exertion has resolved. Still on 1 L of oxygen (with a pulse ox of 95%). Denies chest pain, orthopnea, PND, peripheral edema. Review of Systems Review of Systems: All systems reviewed and are unremarkable except as noted in HPI and below Denies fevers, chills, headache, nasal congestion, sore throat, cough, chest pain, shortness of breath, abdominal pain, nausea, vomiting, dysuria, hematuria, frequency, skin lesions or rashes. Physical Exam 2 Physical Exam: General: Resting comfortably in her bedside chair. Does not appear ill or toxic Neck: No JVD. Negative hepatojugular reflex Cardiac: RRR 2/6 ANJALI Lungs: Speaking full sentences on 1 L supplemental oxygen. Clear to auscultation without W/R/R Abdomen: Normoactive X4. Soft and nontender in all quadrants. Extremities: No peripheral clubbing cyanosis or edema Neuro: A&O X4 cranial nerves II through XII are grossly intact no focal neuro deficits Skin: Erythema migrans seen prior on left side of neck, right popliteal fossa, and left thigh have since resolved Results & Data Results & Data ([facility]) Vital Signs (Past 12 Hours) Vital Signs Temp Pulse Pulse Resp BP Pulse Ox 12/05/20 16:02 36.5 C 81 16 162/80 H 97 12/05/20 15:46 66 12/05/20 08:24 37 C 83 16 158/83 H 96 12/05/20 07:50 93 H Laboratory Results 12/05/20 07:59 12/05/20 07:59 Babesia testing pending Anaplasma PCR pending Diagnostic Findings EKG this morning shows nonspecific ST changes but resolution of T wave inversion in the inferior leads PG Care Time/CCT Total # of Minutes Spent Total Time Spent with Patient: Total time spent is greater than 50% in c oordination of care (as documented) at patient's floor/unit and/or counseling patient: Coding [place] [address] Subseq Hosp Care Lvl 2 Patient Type Established History Expanded Problem Focused Exam Expanded Problem Focused Medical Decision Making Low Complexity Diagnoses Lyme borreliosis A69.20 Elevated troponin R77.8 Elevated liver enzymes R74.8 Acute hyponatremia E87.1 Hypoxemia R09.02
--- NOTE | 2020-12-05 16:41 | XCELERA ---
[id number]
[2020-12-06] MEDS: DOXYCYCLINE HYCLATE 100 MG in DEXTROSE 5% 100 ML IV SCH (06:10)
[2020-12-06 07:03] LABS: Basophils # (auto) 0.02 K/uL (0-0.2); Basophils % (auto) 0.2 %; Eosinophils # (auto) 0.33 K/uL (0-0.5); Eosinophils % (auto) 4.1 %; Hematocrit (blood only) 35.5 % (37-47); Immature Granulocytes # (auto) 0.07 K/uL (0.00-0.02); Immature Granulocytes % (auto) 0.9 %; Lymphocytes # (auto) 1.81 K/uL (1.2-3.4); Lymphocytes % (auto) 22.6 %; Mean Corpuscular Hemoglobin 30.7 pg (25-34); Mean Corpuscular Hgb Conc 33.8 g/dL (32-36); Mean Corpuscular Volume 90.8 fL (80-100); Mean Platelet Volume 8.5 fL (7.4-10.4); Monocytes # (auto) 1.02 K/uL (0.11-0.59); Monocytes % (auto) 12.7 %; Neutrophils # (auto) 4.76 K/uL (1.4-6.5); Neutrophils % (auto) 59.5 %; Platelet Count 439 K/uL (130-400); RDW Coefficient of Variation 14.3 % (11.5-14.5); RDW Standard Deviation 47.4 fL (36.4-46.3); Red Blood Count 3.91 M/uL (4.2-5.4); White Blood Count 8.01 K/uL (4.8-10.8)
[2020-12-06 07:36] LABS: BUN Creatinine Ratio 14.4 (10-20); Calcium 8.5 mg/dl (8.5-10.1); Creatinine Clr Calc Pharmacy 49.6 ml/min; Magnesium 2.1 mg/dl (1.8-2.4); Potassium 3.5 mmol/L (3.5-5.1)
--- NOTE | 2020-12-06 08:16 | Cardiology Progress Note ---
Date of Service December 06, 2020 Assessment & Plan (1) Abnormal echocardiogram: Plan: Patient never had chest pain but did have mild troponin elevation and transient inferior T wave changes with small inferolateral wall motion abnormality on echocardiogram. Dobutamine stress echocardiogram showed no evidence of ischemia by symptoms, ECG, or echocardiogram (even the wall motion abnormality seemed to improve). 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 Reasonable to manage vascular risk overall with aspirin and consider statin once LFTs normalize if significant dyslipidemia noted, but at this point there is no evidence of significant coronary artery disease. Recommend cardiology follow-up, will check echocardiogram in 2 to 3 months. If wall motion normalizes this would be most consistent with transient dysfunction from Lyme carditis, if wall motion remains this would be most consistent with congenital area of myocardial underdevelopment. (2) Hypertension: Plan: Labile BP. No evidence of LVH on echocardiogram. Continue to monitor and adjust medications as outpatient. (3) Lyme borreliosis: Admission and Anticipated Discharge Date Admission Date: December 03, 2020 Subjective Uneventful night. Patient has no complaints, denies chest pain, dyspnea, subjective palpitations, or lightheadedness. She has been anxious about her situation but understands that she is doing quite well. Telemetry shows sinus rhythm with no dysrhythmia. Dobutamine stress echocardiogram yesterday showed no ischemia. Physical Exam Physical Exam: No distress, anxious. Afebrile. BP mild to moderately hypertensive. Pulse 80 bpm and regular without ectopy. Skin: Erythema migrans type rash posterior right knee. No ecchymoses or generalized lesions. HEENT: unremarkable. Neck: no JVD or carotid bruits. Lungs: Clear bilaterally. Respirations unlabored. Cardiac: regular rhythm, 2/6 holosystolic murmur heard only in the axilla, no diastolic murmur or gallop. Abdomen: No guarding or rigidity. No focal tenderness. Extremities: no edema, pulses intact. Neurologic: normal affect and conversation, nonfocal. Results & Data ([facility]) Laboratory Results Normal electrolytes, BUN 12, creatinine 0.82. Diagnostic Findings Negative dobutamine stress echocardiogram at 93% maximum predicted heart rate. The mid inferolateral wall area of hypokinesis did demonstrate augmentation as well. PG Care Time/CCT Total # of Minutes Spent Total Time Spent with Patient: Total time spent is greater than 50% in coordination of care (as documented) at patient's floor/unit and/or counseling patient: Coding Level of Care Code 61485 Subseq Hosp Care Lvl 3 Diagnoses Abnormal echocardiogram R93.1 Lyme borreliosis A69.20 Hypertension I10
[2020-12-06 08:30] LABS: Albumin Level 2.7 gm/dl (3.4-5.0); Bilirubin Direct 0.3 mg/dl (0-0.2); Bilirubin,Total 0.8 mg/dl (0.2-1); Total Protein 6.7 gm/dl (6.4-8.2)
[2020-12-06] MEDS: CETIRIZINE HCL 10 MG TABLET PO SCH (08:30)
[2020-12-06] MEDS: ASPIRIN 81 MG ECTAB PO SCH (08:30)
[2020-12-06] MEDS: MESALAMINE 800 MG TABCR PO SCH (08:30)
[2020-12-06] MEDS: ESCITALOPRAM OXALATE 10 MG TAB PO SCH (08:30)
[2020-12-06] MEDS: PANTOprazole 40 MG TAB PO SCH (08:31)
[2020-12-06] MEDS ORDERED: METOPROLOL SUCC 50MG EXT REL TAB PO SCH (09:00)
[2020-12-06 09:35] LABS: Hepatitis A Antibody IgM NON-REACTIVE (NON-REACTIVE); Hepatitis B Core Antibody IgM NON-REACTIVE (NON-REACTIVE)
[2020-12-06] MEDS: ENOXAPARIN INJ 60 MG/0.6 ML SYR SQ SCH (11:04)
--- NOTE | 2020-12-06 14:09 | Discharge Summary ---
Date of Service December 06, 2020 Admission HPI Per Admitting Provider Radha Tucker is a pleasant 75yo female with history fo HTN, HLP, Ulcerative Colitis and GERD. Patient had a colonoscopy performed on 11/22/20 for routine followup of colon polyps. Patient found to have a 5mm polyp in the descending colon s/p removal with a cold snare. Also with diverticulosis and non- bleeding internal hemorrhoids. Patient began feeling ill on 11/25/20 with high fever Tm of 102.8 as well as crampy, lower abdominal pain and nausea. Also with headache, body aches and fatigue. She has not eaten much over the last week. Also with complaints of HUNTER and mild SOB at rest, occasional chest tightness with exertion. Denies orthopnea, edema, weight gain, dysuria, hematuria. Patient had a telephone visit with her PCP on 11/29/20. Labs and CXR were ordered at that time. WBC from 11/29 normal. Yq=270. Cr elevated at 1.38. PVQ=082, LRR=863. She was prescribed Macrobid for presumed UTI. She took the Macrobid from 11/29 - 12/02 - developed some diarrhea following antibiotic use as well as large red rash on posterior right knee and left neck. Patient still with fatigue, abdominal discomfort, poor appetite and nausea. ER Course: Ceftriaxone, Zofran, NSS Admission Exam Per Admitting Provider General: patient resting comfortably, NAD, non-toxic in appearance, AA&O x 4 Skin: warm, dry, intact, area of well-circumscribed, blanchable, erythematous rash noted on posterior right knee/thigh and posterior left neck HEENT: NC/AT, PERRL, EOMI, anicteric sclera, conjunctiva without injection, external ear normal to inspection and nontender, nares patent, dry lips and mucus membranes, dentition intact, no oropharyngeal lesions, neck supple, trachea midline, no LAD, no thyromegaly, no JVD Heart: +S1/S2, regular, no m/r/g Lungs: equal air entry bilaterally, +crackles in bilateral bases Abd: +BS, soft, NT/ND, no masses/organomegaly/ascites Ext: warm, 2+ pulses in UE/LE bilaterally, no clubbing/cyanosis or edema Neuro: nonfocal, patient AA&O x 4, speech intact, no facial droop, moving all extremities on command with equal strength 5/5 Principal Diagnosis Working diagnoses: 1. Active Lyme disease with associated leukocytosis, fever, erythema migrans, and transaminitis 2. NSTEMIpresumed type II event secondary to #1 3. Abnormal echocardiogrampresumed Lyme carditis versus congenital area of myocardium underdevelopment Discharge Exam General: Resting comfortably in her bedside chair. Does not appear ill or toxic Neck: No JVD. Negative hepatojugular reflex Cardiac: RRR 2/6 ANJALI Lungs: Speaking full sentences on 1 L supplemental oxygen. Clear to auscultation without W/R/R Abdomen: Normoactive X4. Soft and nontender in all quadrants. Extremities: No peripheral clubbing cyanosis or edema Neuro: A&O X4 cranial nerves II through XII are grossly intact no focal neuro deficits Skin: Erythema migrans seen prior on left side of neck, right popliteal fossa, and left thigh have since resolved Discharge Data Allergies Allergy/AdvReac Type Severity Reaction Status Date / Time SAWYER Inhibitors Allergy Intermediate lip Verified 12/03/20 12:21 swelling lisinopril Allergy Intermediate LIP Verified 12/03/20 12:21 SWELLING adhesive Allergy Mild SKIN Verified 12/03/20 12:21 IRRITATION latex Allergy Mild skin Verified 12/03/20 12:21 irritation Consultations 12/04/20 10:57 Consult Cardiology Routine Initial cardiac assesment (1) Elevated troponin: Mild/declining troponin elevation initially suggestive of demand ischemia with no cardiopulmonary symptoms and benign initial ECG. However, she does have new inferior T wave inversions on ECG today and has a small but unexplained wall motion abnormality on her echocardiogram, raising the possibility of an active cardiac process. No evidence of evolving major cardiac event with normal CK and minimal/declining troponin elevation, but prudent to manage as presumed coronary artery disease. Agree with aspirin and beta-darryl therapy. Holding on statin given her elevated LFTs. Would expect Lyme carditis to be more global on echocardiogram with ongoing troponin/CK elevation during this acute illness phase, but focal myocardial involvement is a possibility. Once her acute illness has passed, would further risk stratify with dobutamine stress echocardiogram (she is not a good candidate for a treadmill test given her left knee arthralgias). In the meantime, would continue to observe overnight and obtain yet another ECG and set of enzymes (troponin/CK) in the morning. Further recommendations regarding the timing of stress testing pending results of these. (2) Abnormal echocardiogram: Small mid inferolateral area of severe hypokinesis is an unusual location for an infarct, but the very localized nature of the wall motion abnormality weighs against Lyme myocarditis. There is a small chance this is a congenital finding, but would presume this is a result of myocardial ischemia/small infarct until proven otherwise. Her LV systolic function is preserved. (3) Lyme borreliosis: (4) Hypertension: BP initially hypertensive, normotensive today as she is feeling better. Addition of beta-darryl will be beneficial as well. Will continue to follow along and reevaluate patient tomorrow. Please contact if any change in her clinical status in the meantime. Thank you. Follow up cardiology visit on 12/05/20: (1) Elevated troponin: Plan: Mild/declining troponin elevation with normal CK and mild transient inferior T wave changes. No chest pain at any time. Small focal wall motion abnormality on echo remains unexplained. Will order dobutamine stress echocardiogram to rule out occlusive coronary disease (which could cause demand ischemia in the context of fever/hypertension, etc.). Alternatively, if dobutamine stress echo was negative, would suspect possible Lyme carditis. If this is the case, her enzymes are improving as she receives appropriate treatment for her acute Lyme disease. (2) Abnormal echocardiogram: Plan: Small focal wall motion abnormality, infarct versus Lyme carditis versus congenital? Her LV systolic function is preserved. Dobutamine stress echocardiogram today. (3) Lyme borreliosis: (4) Hypertension: Plan: Given episodic tachycardia and labile BP, could increase beta-darryl further (preferably after her dobutamine stress echo). Further recommendations based on results of her dobutamine stress echocardiogram. Will continue to follow. Follow up cardiology Visit on 12/06/20: (1) Abnormal echocardiogram: Plan: Patient never had chest pain but did have mild troponin elevation and transient inferior T wave changes with small inferolateral wall motion abnormality on echocardiogram. Dobutamine stress echocardiogram showed no evidence of ischemia by symptoms, ECG, or echocardiogram (even the wall motion abnormality seemed to improve). 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 Reasonable to manage vascular risk overall with aspirin and consider statin once LFTs normalize if significant dyslipidemia noted, but at this point there is no evidence of significant coronary artery disease. Recommend cardiology follow-up, will check echocardiogram in 2 to 3 months. If wall motion normalizes this would be most consistent with transient dysfunction from Lyme carditis, if wall motion remains this would be most consistent with congenital area of myocardial underdevelopment. (2) Hypertension: Plan: Labile BP. No evidence of LVH on echocardiogram. Continue to monitor and adjust medications as outpatient. (3) Lyme borreliosis: Procedures Performed dobutamine stress echo: 1. Negative dobutamine stress echo for ischemia at 93% MPHR 2. Negative dobutamine EKG for ischemia at 93% MPHR 3. Appropriate blood pressure perfusion 4. No arrhythmia 5. No chest pain reported 6. Mild inferior lateral wall (small area) was hypokinetic at rest as noted on 12/03/2020 echocardiogram. Mid inferio lateral wall did demonstrate augmentation compared to rest imaging. Ordered Studies 11/29/2020: CXRno acute cardiopulmonary process (done as an outpatient) 11/29/2020: Liver ultrasoundNo significant abnormality within the right upper quadrant by sonography. No gallstones or biliary ductal dilatation. 12/03/20 11:34 CT abd pelvis IV con only Stat IMPRESSION: 1. Findings suggest cystitis. Correlate with clinical findings and urinalysis. 2. The liver is enlarged and there is mild periportal edema. 3. Mild colonic diverticulosis without CT evidence of acute diverticulitis. 4. Intralobular septal thickening is noted at the lung bases. Correlate clinically for evidence of fluid overload/mild congestive failure. 5. There are numerous bibasilar pulmonary nodule which measure up to 8 mm. Follow-up with a nonemergent chest CT is recommended in 3 months time for reassessment and dedicated assessment of the thorax. 6. A 5.2 cm densely calcified lesion in the left adnexa likely represents an exophytic fibroid. 7. Additional findings as above. FU CXR on 12/03/20: IMPRESSION: No acute cardiopulmonary abnormality. 12/04/20 10:57 CT chest diagnostic wo con Routine IMPRESSION: 1. Mild pulmonary edema with interval development of small pleural effusions and dependent bibasilar consolidation suggestive of atelectasis. Pneumonitis considered less likely. 2. The solid pulmonary nodules within the lung bases measuring up to 8 mm described on yesterday's CT abdomen and pelvis are mostly obscured by consolidation. 3. 7 mm subsolid nodule of the superior segment left lower lobe. Please refer to below summary of Fleischner criteria recommendations for follow- up of incidental CT nodules (Malvin Martinez, Guidelines for management of small pulmonary nodules detected on CT scans: A statement from the Fleischner Society, Radiology 237: [phone].) Echocardiogram done 12/04/2020: LV systolic function normal with an EF of 55 to 60%. Small area of severe hypokinesis in the mid inferior lateral wall. All other kramer move normally. Moderate mitral regurgitation. Left atrium is moderately dilated. Mild MR. Right ventricular systolic pressure 50 to 60 mmHg Hospital Course (1) Lyme borreliosis: * IgM positive. Western blot pending * Patient on doxycycline. Significant favorable response noted (white blood cell count normalized, patient has defervesced and clinically symptoms have resolved). continue this x 14 days * Likely the cause of her fever with leukocytosis. * Patient with transaminitis. Anaplasmosis smear preliminarily negative. PCR pending. babesiosis testing pending-treatment would be different (would need addition of azithromycin and Mepron) but unlikely given favorable response to doxy alone * Blood cultures- NG * okay to D/C today with continued abx therapy (2) Elevated troponin: * Suspect NSTEMI secondary to supply demand ischemia rather than unstable plaque given active infection--treat medically * Atenolol converted to metoprolol as more cardiac selective. uptitrated for added BP control * aspirin added * Treateddose Lovenox x48 hours * lipid panel obtained for risk stratification. Hold off on statin therapy for now given mildly elevated LFTs (which is likely due to tickborne illness), may benefit from added statin in the future * Echo with wall motion abnormality. Dobutamine stress testing done- neg for ischemia. Thought that wall abnormality may be related to Lyme carditis vs congenital abnl. Cardiology to follow with repeat Echo in 2 months. Appreciate recommends from cardiology (3) Elevated liver enzymes: * Right upper quadrant ultrasound showing no acute pathology * LFTs downtrending * Suspect related to tickborne illness * See above (4) Acute hyponatremia: * Sodium currently 136 * Clinically, S/S volume overload open disease BNP 12,356, patient was having dyspnea on exertion and a cough, and initially was requiring supplemental oxygen * hyponatremia resolved. (5) Hypoxemia: * [place] [address] * given 2 doses IV lasix . Her HUNTER and hypoxemia resolved. ? secondary to #1&2. * echo done- preserved EF. no right sided heart strain. PE unlikely given no tachycardia and resolution of symptoms following lasix. If hypoxemia persistent following lasix and removal of O2, will obtain CTA but CT w/o c ontrast shows PVC and likely cause of symptoms (again, improved/resolved following lasix) * For discharge home today with continued antibiotic therapy for Lyme disease which is likely the cause of her leukocytosis, fever, and transaminitis. In addition, I suspect that this is also the cause to her elevated troponin (supply demand ischemia). * Echocardiogram obtained showing hypokinesis of a small area of the inferior lateral wall. In conjunction with her troponin and an abnormal EKG (T wave inversion in the anterior lateral wall that was new)dobutamine stress echo was done showing no evidence of occlusive disease. Patient was transitioned from atenolol to metoprolol as it is more cardioselective. It was uptitrated for added blood pressure control. Patient's blood pressure remained elevated but she reports that she does have an associated whitecoat syndrome. PCP to up titrate further as needed. Aspirin added. Statin therapy avoided given her transaminitis likely related to her Lyme disease. * Should follow up with cardiology. Plan is for repeat echocardiogram in 2 months to assess this area of hypokinesis. If gone, favoring a Lyme carditis. If persistent, likely congenital abnormality. * Patient should have follow-up lab work per PCP (CMP to further trend LFTs). * Plan of care discussed with Dr. Carlisle Total Time Total Time Spent Total Time Spent (In Minutes): 60 min including time spent with patient, discussion with cardiology, and with attending physician (Dr. Carlisle). Discharge Plan Discharge Items Patient Disposition: Home - Self-Care Reason For Visit: NAUSEA, ABDOMINAL PAIN Discharge Diagnosis: 1. Lyme Disease with associated fever/leukocytosis 2. Hypoxemia- resolved to mild volume overload likely secondary to Lyme Disease 3. NSTEMI- Type II event: likely related to Lyme disease 4. Accelerated HTN- meds adjusted. To FU with PCP Condition on Discharge: Fair Activity: Resume your previous activity Activity Comment: as tolerated Non-emergency contact: Primary Care Provider and [employer] Supervisor Call non-emergency contact if: you have any medication questions and your symptoms worsen Follow-up/Referrals: Beltran Montiel MD [Physician] - 12/22/20 12:45 pm Jose Antonio Deleon MD [Primary Care Provider] - 12/15/20 4:00 pm () Diet: Heart Healthy Addtl Attending Provider Instructions: - Complete full course of Doxycycline (antibiotic for Lyme Disease) -- note that this can cause increased reflux. Continue your Pantoprazole in the am. May take Pepcid in the evening -- Do not take Doxycycline with Dairy as this will block it's absorption -- note that Doxycycline causes increased sun sensitivity while taking this medications. - Note that your Atenolol has been changed to Metoprolol (for BP control but more importantly, added cardiac protection) - Take a Baby Aspirin daily (81mg-- recommend "EC" enteric coated) - Your Liver function studies were elevated during this hospitalization but are downtrending. Avoid Tylenol/Tylenol related products and alcohol. Recommend Repeat CMP in 2 weeks to trend (at discretion of PCP) - Follow up with cardiology within 2-4 weeks. You will need a repeat Echocardiogram in 2 months (at discretion of cardiology) - Follow up with PCP: 7-10 days - return to the ED for new or worsening symptoms Pending Studies at Discharge: No Stand-Alone Forms: My [facility] Medications and DC Order Prescriptions: New metoprolol succinate 50 mg Tablet Extended Release 24 Hr 50 mg PO QAM Qty: 30 RF: 0 aspirin 81 mg Tablet,Delayed Release (Dr/Ec) 81 mg PO QAM Qty: 30 RF: 0 doxycycline hyclate 100 mg capsule 100 mg PO BID 21 Days Qty: 22 RF: 0 Continued albuterol sulfate 90 mcg/actuation HFA aerosol inhaler 1 inh inhalation QID PRN (Reason: shortness of breath or wheezing) Qty: 1 RF: 2 omega 6-nue-dzd-fish oil 120-180-600 mg capsule 1 cap PO BID RF: 0 mesalamine 800 mg tablet,delayed release (DR/EC) 800 mg PO TID RF: 0 cholecalciferol (vitamin D3) 25 mcg (1,000 unit) capsule 25 mcg PO BID RF: 0 calcium carbonate 400 mg calcium (1,000 mg) tablet,chewable 400 mg PO BID RF: 0 famotidine [Pepcid] 20 mg tablet 20 mg PO HS PRN (Reason: acid reflux) RF: 0 pantoprazole 40 mg tablet,delayed release (DR/EC) 40 mg PO QAM RF: 0 escitalopram oxalate 10 mg tablet 10 mg PO QAM RF: 0 cetirizine [Zyrtec] 10 mg Tablet 10 mg PO QAM RF: 0 Discontinued nitrofurantoin monohyd/m-cryst [Macrobid] 100 mg capsule 100 mg PO BID 7 Days Qty: 14 RF: 0 atenolol 25 mg tablet 25 mg PO QAM RF: 0 acetaminophen [Tylenol Extra Strength] 500 mg Tablet 1,000 mg PO Q6H PRN (Reason: Pain) RF: 0 Discharge Orders: Discharge Order (Routine); Ordered 12/06/20 Ordered By: Kayla Jones/Other Patient Handouts: Preventing Lyme Disease, Tick Bites, ED Lyme Disease Admission Data Admit Date/Time: 12/03/20 14:16 Attending Provider: Ryder Carlisle Admit Provider: Ade Hernandes Primary Care Provider: Jose Antonio Deleon. Other Providers: Ade Hernandes ; Beltran Montiel Other Interventions: Discharge Summary Assessment (RN) Last Done: 12/06/20 09:53 Supervising Physician Co-Signing Physician Notes Patient seen and examined on the day of discharge. I agree with the discharge summary by Kayla LOGAN. I have reviewed the chart including labs, imaging and plans for discharge. patient feeling much better, no fever, no aches, labs are all improving or back to normal - Lyme disease: confirmatory Western blot but screen positive and all symptoms point to Lyme disease complete 14 days of Doxycycline follow up with PCP Coding Level of Care Code Established Pt D/C DAY MANAGEMENT >30 MINS Patient Type Established Diagnoses Lyme borreliosis A69.20 Elevated troponin R77.8 Elevated liver enzymes R74.8 Acute hyponatremia E87.1 Hypoxemia R09.02 Time Spent (min) 60
[2020-12-06 23:31] LABS: 18KDIGG Band NON-REACTIVE; 23KDIGG Band NON-REACTIVE; 23KDIGM Band REACTIVE; 28KDIGG Band NON-REACTIVE; 30KDIGG Band NON-REACTIVE; 39KDIGG Band NON-REACTIVE; 39KDIGM Band REACTIVE; 41KDIGG Band REACTIVE; 41KDIGM Band REACTIVE; 45KDIGG Band NON-REACTIVE; 58KDIGG Band NON-REACTIVE; 66KDIGG Band NON-REACTIVE; 93KDIGG Band NON-REACTIVE; Lyme Antibodies, WB IgG NEGATIVE (NEGATIVE); Lyme Antibodies, WB IgM POSITIVE (NEGATIVE)
--- NOTE | 2020-12-07 19:44 | Electrocardiogram Report ---
Test Reason : Blood Pressure : / mmHG Vent. Rate : 072 BPM Atrial Rate : 072 BPM P-R Int : 172 ms QRS Dur : 090 ms QT Int : 414 ms P-R-T Axes : 057 028 -02 degrees QTc Int : 453 ms Normal sinus rhythm Nonspecific T wave abnormality When compared with ECG of 04-DEC-2020 13:57, Nonspecific T wave abnormality has replaced inverted T waves in Inferior leads Confirmed by Jeancarlos Jovel ([id number]) on 12/07/2020 7:44:23 PM Referred By: REFERRED SELF Confirmed By:Jeancarlos Jovel
[2020-12-08 21:46] LABS: Babesia microti DNA Not Detected (Not Detected); Babesia microti IgG <1:64 titer (<1:64)
== END 2020-12-06 11:23 | disposition home or self-care (01) | DRG 867 ==
LOC: ED 11:08 → SUATTDRO 14:16 → 2N 14:16

== ENCOUNTER 2022-10-25 06:40 | Observation (INO) ==
--- NOTE | 2022-10-08 15:57 | PAT Medication Instructions ---
Medication Instructions Date of Service October 08, 2022 Home Medications Medication Instructions Recorded aspirin 81 mg tablet,delayed 81 mg PO QAM #30 tabs 12/06/20 release escitalopram oxalate 10 mg tablet 10 mg PO QAM #90 tabs 12/20/21 albuterol sulfate 90 mcg/actuation 1 inh inhalation QID PRN shortness 03/16/22 aerosol inhaler of breath or wheezing #3 ea mesalamine 800 mg tablet,delayed 800 mg PO TID #270 tabs 03/27/22 release calcium carbonate 400 mg calcium (1,000 mg) chewable tablet 400 mg PO BID cholecalciferol (vitamin D3) 25 mcg (1,000 unit) capsule 25 mcg PO BID cetirizine 10 mg tablet (Zyrtec) 10 mg PO QAM famotidine 20 mg tablet (Pepcid) 20 mg PO HS PRN acid reflux3] aspirin 81 mg tablet,delayed release 81 mg PO QAM metoprolol succinate 50 mg tablet,extended release 24 hr 25 mg PO QAM PRN Tachycardia escitalopram oxalate 10 mg tablet 10 mg PO QAM albuterol sulfate 90 mcg/actuation aerosol inhaler 1 inh inhalation QID PRN shortness of breath or wheezing mesalamine 800 mg tablet,delayed release 800 mg PO TID ciclopirox 8 % topical solution 1 applic topical HS clonidine HCl 0.1 mg tablet 0.1 mg PO TID PRN htn pantoprazole 40 mg tablet,delayed release 40 mg PO QAM ASK your prescriber and surgeon mesalamine 800 mg tablet,delayed release 800 mg PO TID STOP taking 24 hours before surgery ciclopirox 8 % topical solution 1 applic topical HS DO NOT take the morning of surgery calcium carbonate 400 mg calcium (1,000 mg) chewable tablet 400 mg PO BID cholecalciferol (vitamin D3) 25 mcg (1,000 unit) capsule 25 mcg PO BID cetirizine 10 mg tablet (Zyrtec) 10 mg PO QAM Take morning of surgery With a small sip of water, OTHERWISE NOTHING TO EAT OR DRINK AFTER MIDNIGHT: aspirin 81 mg tablet,delayed release 81 mg PO QAM (continue as normal unless told otherwise by surgeon) metoprolol succinate 50 mg tablet,extended release 24 hr 25 mg PO QAM PRN Tachycardia (if needed) escitalopram oxalate 10 mg tablet 10 mg PO QAM albuterol sulfate 90 mcg/actuation aerosol inhaler 1 inh inhalation QID PRN shortness of breath or wheezing (use if needed; please bring rescue inhaler with you to hospital day of surgery if possible) clonidine HCl 0.1 mg tablet 0.1 mg PO TID PRN htn (if needed) pantoprazole 40 mg tablet,delayed release 40 mg PO QAM Take evening before surgery calcium carbonate 400 mg calcium (1,000 mg) chewable tablet 400 mg PO BID cholecalciferol (vitamin D3) 25 mcg (1,000 unit) capsule 25 mcg PO BID famotidine 20 mg tablet (Pepcid) 20 mg PO HS PRN acid reflux3 (if needed) albuterol sulfate 90 mcg/actuation aerosol inhaler 1 inh inhalation QID PRN shortness of breath or wheezing (if needed) mesalamine 800 mg tablet,delayed release 800 mg PO TID clonidine HCl 0.1 mg tablet 0.1 mg PO TID PRN htn (if needed) Other Notes If you have any questions please call us at [phone] or [phone] or [phone] or [phone]
--- NOTE | 2022-10-15 10:01 | Anesthesiology Consultation ---
Date of Service October 15, 2022 Assessment & Plan (1) Encounter for pre-operative examination: Plan - awaiting signed [place] PCP office visit note 10/09/22. - cardiology 10/10/22 [place]: "...history of Lyme carditis (focal wall motion abnormality which resolved) and labile hypertension who presents for preoperative cardiovascular evaluation prior to left hip replacement on 10/25/[address] Sainz...currently stable and asymptomatic from a cardiovascular standpoint with no anginal symptoms occurring at >4 METS of activity. She has no evidence of CHF or significant valvular abnormality. BP is adequately controlled. ECG today shows normal sinus rhythm and is otherwise unremarkable. Patient is therefore at an acceptable risk to proceed with upcoming surgery without any additional cardiovascular testing or intervention..." - Case discussed with Dr. Gordon who advised patient does not need additional evaluation prior to surgery from his standpoint. Workload note sent to PCP for continuity of care. - Outpatient joint assessment: Patient is currently scheduled for inpatient pathway. If re-evaluated pending system levels during current pandemic/surgeon requests outpatient pathway, patient is not recommended candidate for outpatient joint program from anesthesia standpoint. Chart Review Chart Review: Pending: Refer to Additional Notes / Consult section and Patient seen in Pre Admission Testing Teaching & Discussion Pre-Anesthesia Teaching/Discussion Notes: Instructed NPO after midnight before surgery, except medications with 15 cc of water. Medication instructions provided according to the PAT guidelines. History Surgery Operation Date: 10/25/22 11:45 Proposed Procedures p Left Total Hip Arthroplasty - Jono Sainz MD Height/Weight Height: 5 ft 4.5 in Weight: 65.4 kg Allergies Allergy/AdvReac Type Severity Reaction Status Date / Time SAWYER Inhibitors Allergy Intermediate lip Verified 10/10/22 10:48 swelling lisinopril Allergy Intermediate LIP Verified 10/10/22 10:48 SWELLING adhesive Allergy Mild SKIN Verified 10/10/22 10:48 IRRITATION latex Allergy Mild skin Verified 10/10/22 10:48 irritation Medications Home Medications Medication Instructions Recorded Confirmed Last Taken calcium carbonate 400 mg calcium 400 mg PO BID 11/09/19 10/10/22 12/03/20 (1,000 mg) chewable tablet cholecalciferol (vitamin D3) 25 25 mcg PO BID 11/09/19 10/10/22 12/03/20 mcg (1,000 unit) capsule cetirizine 10 mg tablet (Zyrtec) 10 mg PO QAM 11/15/20 10/10/22 12/03/20 famotidine 20 mg tablet (Pepcid) 20 mg PO HS PRN acid reflux 11/15/20 10/10/22 Unknown aspirin 81 mg tablet,delayed 81 mg PO QAM #30 tabs 12/06/20 10/10/22 Unknown release metoprolol succinate 50 mg 25 mg PO QAM PRN Tachycardia 05/18/21 10/10/22 Unknown tablet,extended release 24 hr escitalopram oxalate 10 mg tablet 10 mg PO QAM #90 tabs 12/20/21 10/10/22 Unknown albuterol sulfate 90 mcg/actuation 1 inh inhalation QID PRN shortness 03/16/22 10/10/22 Unknown aerosol inhaler of breath or wheezing #3 ea mesalamine 800 mg tablet,delayed 800 mg PO TID #270 tabs 03/27/22 10/10/22 Unknown release ciclopirox 8 % topical solution 1 applic topical HS 10/04/22 10/10/22 Unknown clonidine HCl 0.1 mg tablet 0.1 mg PO TID PRN htn 10/04/22 10/10/22 Unknown pantoprazole 40 mg tablet,delayed 40 mg PO QAM 10/04/22 10/10/22 Unknown release Past Medical History Medical History (Updated 10/15/22 @ 10:04 by Layla Capone PA-C) Allergy-induced asthma albuterol inhaler used daily d/t pets in household Anxiety GERD (gastroesophageal reflux disease) controlled, stable per pt High frequency hearing loss of both ears Hyperlipidemia Hypertension labile per cardio records Lyme carditis Hx. Follows with Dr. Montiel. Osteoporosis Pulmonary nodule annual CT - [facility] Tachycardia metoprolol PRN Tubular adenoma of colon Ulcerative colitis Patient denies h/o stroke, seizures, heart attack, heart failure, DM, blood clots or blood transfusions. Exercise / Class Metabolic Activity II 4-5 Yardwork/Stairs/Walk up hill (chronic occ shortness of breath with 1 FOS (cardio aware), denies chest discomfort, denies change or worsening) Past Family History Family History Father Lung cancer Mother History of colon cancer Colon cancer Colitis Breast cancer Unknown Heart disease Grandfather (Maternal) Pulmonary embolism Stroke Other Myocardial infarction No family history of adverse response to anesthesia Denies family history of Ovarian cancer Prostate cancer Past Surgical History Surgical History History of bilateral cataract extraction History of breast biopsy benign History of dilatation and curettage History of removal of skin mole multiple History of wisdom tooth extraction Past Anesthesia History No Hx of Anesthesia Complications and No Family Hx of Anesthesia Complications History of PONV No Hx of PONV and No Hx of Motion Sickness Social History Smoking Status: Never smoker Do You Dip or Chew Tobacco: No Hx Alcohol Use: No (stopped alcohol intake last month d/t patient correlation with increased BP) Alcohol type: wine alcohol intake frequency: a few times a week Hx Substance Use: No substance use type: does not use Review of Systems Nasal congestion past several days consistent with allergies per pt, denies cough. Denies change in chronic wheezing correlated with her asthma, denies increased rescue inhaler use. Patient denies chest pain, shortness of breath, dyspnea on exertion, snoring, witnessed apneas, fever, chills, or palpitations. Physical Exam Vital Signs Vitals BP 134/63 P 66 TEMP 97.9 SP02 97% on RA RESP 17 Physical Full cervical extension range of motion without pain TMD 3.5 finger breadths Mallampati Score 2 Dentition: lower left chipped tooth, denies chipped or loose teeth, caps/crowns, implants or bridges Lungs: normal respiratory effort. Good air movement, clear throughout to auscultation, no adventitious breath sounds Cardiac: regular rate and rhythm, no murmurs noted Carotid arteries: negative bruit bilat Lab Results Anesthesia Preop Results Results Anesthesia Widget: WBC 3.86 K/ul (4.8-10.8) L 10/15/22 Hgb 13.8 g/dl (12.0-16.0) 10/15/22 Hct 40.6 % (37.0-47.0) 10/15/22 Plt 237 K/uL (130-400) 10/15/22 Na 140 mmol/L (136-145) 10/15/22 K 4.2 mmol/L (3.5-5.1) 10/15/22 Cl 106 mmol/L (98-107) 10/15/22 CO2 30 mmol/L (21-32) 10/15/22 BUN 18 mg/dl (6-23) 10/15/22 Creat 1.13 mg/dl (0.6-1.2) 10/15/22 Glucose Level 106 mg/dl (70-99(Fasting)) H 10/15/22 PT 10.5 Seconds (9.0-12.0) 10/15/22 PTT 26.6 Seconds (21.0-31.0) 10/15/22 INR 1.0 (0.9-1.1) 10/15/22 TSH 1.811 uIu/ml (0.300-4.500) 10/15/22 Urine Color Yellow 10/15/22 Urine Appearance Clear (Clear) 10/15/22 Urine pH 6.0 (4.5-7.5) 10/15/22 Urine Specific [place] 1.020 (1.000-1.030) 10/15/22 Urine Protein Negative (Negative) 10/15/22 Urine Glucose (UA) Negative (Negative) 10/15/22 Urine Ketones Negative (Negative) 10/15/22 Urine Blood Negative (Negative) 10/15/22 Urine Nitrite Negative (Negative) 10/15/22 Urine Bilirubin Negative (Negative) 10/15/22 Urine Urobilinogen Negative (Negative) 10/15/22 Urine Leukocyte Esterase 1+ (Negative) H 10/15/22 Urine WBC (Auto) 1-5 /hpf (0-5) 10/15/22 Urine RBC (Auto) 0-4 /hpf (0-4) 10/15/22 Urine Hyaline Casts (Auto) 1-5 /lpf (0-5) 10/15/22 Urine Epithelial Cells (Auto) 10-20 /lpf (0-5) H 10/15/22 Urine Bacteria (Auto) Negative (Negative) 10/15/22 Blood Type O Positive 10/15/22 Antibody Screen NEGATIVE 10/15/22 Testing Electrocardiogram Date: 10/10/22 NSR, rate 83 bpm Echocardiogram Date: 01/17/21 EF 55-60% No regional wall motion abnormalities noted No significant valvular pathology Stress Test Date: 12/05/20 Pharmacologic Negative stress echo and EKG for ischemia at 93% MPHR Mild inferolateral wall did demonstrate augmentation compared to resting imaging, hypokinetic at rest on 12/03/20 echo Other Testing Chest CT 02/01/22 1. No change in a 7 mm subsolid left lower lobe nodule since chest CT of December 04, 2020. This is probably benign. A follow up chest CT in one year is recommended to ensure continued stability. 2. No change in a 1 cm right basilar opacity which favors atelectasis or scarring. This can be assessed on follow-up CT as well. 3. No acute intrathoracic findings. COVID-19 Risk Screen Screening Information COVID-19 Screen Date: 10/15/22 Exposure 21 Days Family/Household +COVID Last 21 Days: No Exposure 10 Days Any COVID Exposure Last 10 Days: No Symptoms Last 10 Days Experienced COVID Sx Last 10 Days: No + COVID 0-90 Days COVID + in Last 0-90 Days: No
[~2022-10-25 06:40] MED LIST changes: +ACETAMINOPHEN 500 MG TAB PO SCH; -ATEN-173 PO; +BUPIVACAINE 0.5 % 5 MG/1 ML PF 10ML VIAL ONE; -CALC-393 PO; -CHOL1CAP57 PO; -CRANCAP4 PO; +CeleBREX 200 MG CAP PO SCH; -ESCI10TA17 PO; +LR 500ML BOLUS, THEN 15ML/HR IV SCH; +LR 60ML/HR IV SCH; -MESA1TAB4 PO; -MULT-506 PO; -OMEG10007 PO; -RANI150T3 PO; +ROPIVACAINE 0.5% 5 MG/ML 30 ML VIAL ONE; +ROPIVACAINE 0.5% HCL/PF 150 MG, BUPIVACAINE 0.75% MPF 20 ML, EPINEPHrine 0.15 MG, Ketor... INFIL SCH; +Scopolamine 1 MG TDSY TD SCH; +TRANEXAMIC ACID 1,000 MG **IV Intra-op IV SCH; +TRANEXAMIC ACID 1,000 MG **IV Pre-op IV SCH; +ceFAZolin 2000MG 2,000 MG/15 ML SYR IV ONE; +dexAMETHasone 4 MG TAB PO SCH; +traMADol HCL 50 MG TABLET PO SCH
[2022-10-25] MEDS ORDERED: PROPOFOL IV EMULSION 10 MG/ML 20 ML VIAL IV ONE ×2 (07:24→10:18)
[2022-10-25] MEDS ORDERED: MIDAZOLAM HCL 1 MG/ML 2ML VIAL ONE (07:24)
[2022-10-25] MEDS ORDERED: ATROPINE SULFATE 0.1 MG/ML 10ML SYR IV PRN (08:25)
[2022-10-25] MEDS ORDERED: ONDANSETRON INJ 2 MG/ML 2 ML VIAL IV PRN ×2 (08:25→13:01)
[2022-10-25] MEDS ORDERED: fentaNYL citrate PF 100 MCG/2 ML VIAL IV PRN (08:25)
[2022-10-25] MEDS ORDERED: ePHEDrine sulfate 50 MG/ML AMP IV PRN (08:25)
--- NOTE | 2022-10-25 08:47 | History & Physical Bridge Note ---
Date of Service October 25, 2022 History & Physical Bridge Note I have examined the patient, reviewed the History & Physical and in the interval since the performance of the History & Physical I have noted the following changes of clinical significance: no changes noted
[2022-10-25] MEDS ORDERED: ORTHO JOINT ANESTHETIC ONE (09:07)
[2022-10-25] MEDS ORDERED: ePHEDrine sulfate 50 MG/ML SYR ONE (09:54)
--- NOTE | 2022-10-25 11:13 | Operative Report ---
Post Operative Report Pre & Post Diagnosis Operation Date: 10/25/22 08:50 Pre-Op Diagnosis: Left Hip Osteoarthritis Post-Op Diagnosis: Left Hip Osteoarthritis I identified the patient and participated in the time-out.: Yes Procedure Operation Date: 10/25/22 08:50 Actual Procedures p Left Total Hip Arthroplasty(Left) - Jono Sainz MD Surgeon Jono Sainz MD Director Public Service Andie Ashley PA-C and Shanda Ochoa. No resident or fellow available Estimated Blood Loss 100 Findings Consistent with Post-Op Diagnosis Fluids 1300 Specimens Left hip Anesthesia Type Spinal MAC Complications none Disposition Disposition: Recovery Room Indications 77-year-old female, left hip arthritis refractory to conservative management. X-rays demonstrate [id number] disease with marginal osteophytes. I had a long discussion with her about the risks about the surgery, alternatives to surgery, expected outcomes. After reviewing all these she elected proceed with surgery. All questions were answered. Informed consent was signed. Description of Procedure Patient was identified in the preoperative holding area where the surgical site, left hip, was marked. A spinal anesthetic was placed, then the patient was brought back to the main operating room, placed in the operating table and moved into the lateral decubitus position. Axillary roll was placed. All bony prominences were padded. Perioperative antibiotics and tranexamic acid 1 gram IV were administered. Operative extremity was prepped and draped in the normal sterile fashion. Prior to incision a multidisciplinary timeout was called. All in the room were in agreement. We began by making an incision for a posterior approach to the hip. We dissected down through subcutaneous tissues to the level of the fascia. The fascia was incised in line with the incision. Charnley bow was placed. Fatty tissue was reflected posteriorly off the back of the greater trochanter to expose the piriformis and short external rotators of the hip. The piriformis and short external rotators were dissected off the posterior aspect of the hip. A box cut was made in the capsule. Inferior hip capsule was released off the femur. The femoral head was dislocated. The femoral neck cut was made at our preoperative template. The acetabulum was then exposed. The labrum was sharply excised. Contents of the cotyloid fossa were removed with electrocautery. We then began reaming at a size 8 mm less than our preoperative template. We reamed up by 1 [address] the way up to a size 56 mm cup. This gave us good bleeding cancellus bone circumferentially. The acetabulum was then irrigated out and dried. The real Ismay Gription cup was then impacted down into position with 45 degrees of lateral opening and 25 degrees of anteversion. A single cancellous bone screw was placed up into the ilium. Excellent fixation was obtained. A trial liner for a 36 mm femoral head was then placed. Next we turned our attention to the femur. The lateral neck was removed with a box osteotome. Intramedullary guide was used followed by the lateralizing reamer. We then reamed up to a size 3 Stoddard stem. We then broached all the way up to a size 3. We began trialing with a standard offset neck and a +5 head. Hip was reduced. Leg lengths were symmetric. The hip was stable in extension and external rotation, and stable in the sleeper position. At 90 degrees of hip flexion the hip could be internally rotated 70 degrees before levering out of the cup. I was very happy with the stability exam. Therefore the hip was dislocated and the femoral trial was removed. The acetabulum was re-exposed, and the trial liner was removed. An Altrx polyethylene liner for a 36 mm femoral head was then impacted into the shell. The locking mechanism was checked to ensure that it had engaged which it had. The femur was re-exposed. The femoral canal was irrigated and dried. The real size 3 standard offset Stoddard femoral stem was opened up. This was impacted down into position. It sat at the same level as the femoral trial. Therefore the 36 mm ceramic femoral head with +5 mm offset was opened up and gently impacted down onto the trunnion. The hip was atraumatically reduced. Another 1 gram of IV tranexamic acid was started prior to closure. The wound was irrigated out with sterile Betadine solution. The periarticular injection cocktail was then placed. The short external rotators, piriformis, and posterior capsule were repaired through drill holes in the greater trochanter using #2 Vicryl. The fascia was run with a looped #1 PDS. The subcutaneous layer was closed with #1 PDS. The dermal layer was closed with 2-0 Vicryl. Zip line was used for the skin followed by a Silverlon dressing. A compressive dressing was then placed. The patient was then rolled supine. Leg lengths were rechecked and were symmetric. An abduction pillow was placed. Sedation was lifted and the patient was transferred to the recovery room in stable condition. Summary of implants: Depuy Ismay Gription Acetabular Shell Sector Cup, 56 mm outer diameter Ismay Cancellous bone screw, 6.5 x 40 mm [place] hole eliminator Ismay Altrx Polyethylene Acetabular Liner, Neutral, with a 36 mm inner diameter DePuy Stoddard Femoral stem with [place], 12/14 taper, size 3 standard offset 36 mm ceramic femoral head with +5 offset Postoperative course: Patient will be admitted overnight from the recovery room. Patient will be weightbearing as tolerated with posterior hip precautions. Aspirin for DVT prophylaxis I attest to the content of the Intraoperative Record and any orders documented therein. Any exceptions are noted below.
--- NOTE | 2022-10-25 11:27 | Operative Report ---
Post Operative Report Pre & Post Diagnosis Operation Date: 10/25/22 08:50 Pre-Op Diagnosis: Left Hip Osteoarthritis Post-Op Diagnosis: Left Hip Osteoarthritis I identified the patient and participated in the time-out.: Yes Procedure Operation Date: 10/25/22 08:50 Actual Procedures p Left Total Hip Arthroplasty(Left) - Jono Sainz MD Surgeon Dr Sainz Bottle Blowing Machine Tender Andie Ashley PA-C and Shanda Ochoa. No resident or fellow available Estimated Blood Loss 100 Findings Consistent with Post-Op Diagnosis Specimens left hip femoral head Description of Procedure Pt was taken to operating room, given spinal anesthesia and sedation. Pt was given 2g Ancef IV. Prepped and draped in sterile fashion. I was present during the entire case and assisted with positioning, instrumentation, closure and dressings. Please see Dr. Sainz's op report for further detail. Pt was awake and transferred to PACU in stable condition I attest to the content of the Intraoperative Record and any orders documented therein. Any exceptions are noted below.
--- NOTE | 2022-10-25 12:09 | Anesthesiology Progress Note ---
Date of Service October 25, 2022 Anesthesia Post Procedure Vital Signs Vital Signs: Temp Pulse Pulse Resp BP BP Pulse Ox 10/25/22 12:05 68 17 141/66 H 100 10/25/22 11:55 97.3 F L 66 18 131/65 97 10/25/22 11:45 84 19 94/69 L 98 10/25/22 11:35 63 18 140/65 98 10/25/22 11:25 71 16 145/64 H 100 10/25/22 11:17 97.0 F L 78 17 146/75 H 100 10/25/22 07:00 97.7 F 80 18 172/92 H 99 O2 Del Method O2 Flow Rate 10/25/22 12:05 Room Air 10/25/22 11:55 Room Air 10/25/22 11:45 Room Air 10/25/22 11:35 Room Air 10/25/22 11:25 Oxymask 3 10/25/22 11:17 Oxymask 5 10/25/22 07:00 Room Air Transfer of Care Handoff Completed per policy Notes Mental Status: alert / awake / arousable and participated in evaluation Patient Amnestic to Procedure: Yes Nausea / Vomiting: adequately controlled Pain: adequately controlled Airway Patency, RR, SpO2: stable & adequate BP & HR: stable & adequate Hydration State: stable & adequate Neuraxial Anesthesia: was administered and sensory block is resolving Anesthetic Complications: no major complications apparent and Pt Satisfied with anesthetic care
--- NOTE | 2022-10-25 12:13 | XRay Report ---
XR hip 1V LT w pelvis CLINICAL HISTORY: IN PACU - Post Surgical TECHNIQUE: 2 views of the left hip and single frontal view of the pelvis were obtained. Comparison: Comparison is made to hip radiograph 10/15/2022 FINDINGS: Patient is status post total hip arthroplasty with expected postsurgical changes including soft tissu e swelling and subcutaneous emphysema. IMPRESSION: Expected postoperative appearance status post placement of total hip arthroplasty. ACT 112: Negative or not required by law. Electronically signed by: Ryder Gannon M.D. 10/25/2022 12:11 PM
[2022-10-25] MEDS ORDERED: oxyCODONE HCL IR 5 MG TAB (IMMEDIATE RELEASE) PO PRN (13:01)
[2022-10-25] MEDS ORDERED: METOCLOPRAMIDE HCL INJ 5 MG/ML 2 ML VIAL IV PRN (13:01)
[2022-10-25] MEDS ORDERED: NALOXONE HCL 0.4 MG/1 ML VIAL/CARP IV PRN (13:01)
[2022-10-25] MEDS ORDERED: FAMOTIDINE 20 MG TAB PO PRN (13:01)
[2022-10-25] MEDS ORDERED: bisacodyL 10 MG SUPP PR PRN (13:01)
[2022-10-25] MEDS ORDERED: cloNIDine HCL 0.1 MG TAB PO PRN (13:01)
[2022-10-25] MEDS ORDERED: HYDROmorphone INJ 0.5 MG/0.5 ML SYR IV PRN (13:01)
[2022-10-25] MEDS ORDERED: METOPROLOL SUCC 25MG EXT REL TAB PO PRN (13:01)
[2022-10-25] MEDS ORDERED: MAGNESIUM HYDROXIDE SUSP 30 ML UDC PO PRN (13:01)
[2022-10-25] MEDS: SODIUM CHLORIDE 0.9% 1000ML 1,000 ML IV SCH (14:57)
[2022-10-25] MEDS: ACETAMINOPHEN 500 MG TAB PO SCH ×2 (14:58→20:46)
[2022-10-25] MEDS: KETOROLAC TROMETHAMINE 15 MG/ML VIAL IV SCH ×2 (14:58→19:28)
[2022-10-25] MEDS: MESALAMINE 800 MG TABCR PO SCH ×2 (14:59→20:46)
[2022-10-25] MEDS: Scopolamine CHECK PATCH PLACEMENT SCH (15:03)
[2022-10-25] MEDS: ceFAZolin 2000MG 2,000 MG/15 ML SYR IV SCH (18:21)
[2022-10-25] MEDS: DOCUSATE SODIUM 100 MG CAP PO SCH (20:45)
[2022-10-25] MEDS ORDERED: CeleBREX 200 MG CAP PO SCH (21:00)
[2022-10-25] MEDS ORDERED: SENNA 8.6 MG TAB PO SCH (21:00)
[2022-10-26] MEDS: SODIUM CHLORIDE 0.9% 1000ML 1,000 ML IV SCH (01:08)
[2022-10-26] MEDS: ceFAZolin 2000MG 2,000 MG/15 ML SYR IV SCH (01:12)
[2022-10-26] MEDS: KETOROLAC TROMETHAMINE 15 MG/ML VIAL IV SCH ×2 (01:13→07:26)
[2022-10-26] MEDS: ACETAMINOPHEN 500 MG TAB PO SCH (05:32)
[2022-10-26 05:51] LABS: Basophils # (auto) 0.01 K/uL (0-0.2); Basophils % (auto) 0.1 %; Hematocrit (blood only) 31.6 % (37.0-47.0); Hemoglobin 11.1 g/dl (12.0-16.0); Immature Granulocytes # (auto) 0.04 K/uL (0.01-0.20); Immature Granulocytes % (auto) 0.5 %; Lymphocytes # (auto) 0.96 K/uL (1.2-3.4); Lymphocytes % (auto) 11.1 %; Mean Corpuscular Hemoglobin 31.9 pg (25.0-34.0); Mean Corpuscular Hgb Conc 35.1 g/dL (32.0-36.0); Mean Corpuscular Volume 90.8 fL (80.0-100.0); Mean Platelet Volume 9.5 fL (9.4-12.4); Monocytes # (auto) 0.63 K/uL (0.11-0.59); Monocytes % (auto) 7.3 %; Neutrophils # (auto) 7.04 K/uL (1.40-6.50); Platelet Count 211 K/uL (130-400); RDW Coefficient of Variation 12.9 % (11.5-14.5); RDW Standard Deviation 42.4 fL (36.4-46.3); Red Blood Count 3.48 M/uL (4.20-5.40); White Blood Count 8.68 K/ul (4.8-10.8)
[2022-10-26 06:03] LABS: BUN Creatinine Ratio 20.8 (10-20); Calcium 8.5 mg/dl (8.6-10.3); Creatinine Clr Calc Pharmacy 37.9 ml/min; Est GFR (African American) 57.8 ml/min; Est GFR (Non-African American) 49.9 ml/min; Potassium 4.1 mmol/L (3.5-5.1)
[2022-10-26] MEDS: Scopolamine CHECK PATCH PLACEMENT SCH ×2 (07:26)
[2022-10-26] MEDS: MESALAMINE 800 MG TABCR PO SCH (07:27)
[2022-10-26] MEDS: DOCUSATE SODIUM 100 MG CAP PO SCH (07:27)
[2022-10-26] MEDS ORDERED: PANTOprazole 40 MG TAB PO SCH (09:00)
[2022-10-26] MEDS ORDERED: ESCITALOPRAM OXALATE 10 MG TAB PO SCH (09:00)
[2022-10-26] MEDS ORDERED: ASPIRIN 81 MG ECTAB PO SCH (09:00)
[2022-10-26] MEDS ORDERED: CETIRIZINE HCL 10 MG TABLET PO SCH (09:00)
[2022-10-26] MEDS ORDERED: MULTIVITAMIN TAB PO SCH (09:00)
--- NOTE | 2022-10-26 09:38 | Orthopedic Progress Note ---
Date of Service October 26, 2022 Assessment & Plan (1) S/P total left hip arthroplasty: Plan: Total hip precautions reviewed Weightbearing as tolerated with walker assistance DVT prophylaxis with RADHA stockings and aspirin Pain control with p.o. medication Ice with easy wrap Keep Silverlon dressing in place Abduction pillow use x6 weeks Plan is to discharge home today with in-home physical therapy for the first 2 weeks Follow-up with [facility] orthopedics as previously scheduled With questions contact our clinic at [phone] Admission and Anticipated Discharge Date Admission Date: October 25, 2022 Subjective 77-year-old female seen today 1 status post left total hip arthroplasty. She states that she is doing very well. She is dressed and ready to be discharged home soon as possible. She states that her pain is essentially gone. Currently she denies chest pain, shortness of breath, fever, chills, sweats, nausea, vomiting, diarrhea, difficulty voiding or numbness or tingling in her left lower extremity. Review of Systems Review of Systems: All systems reviewed & are unremarkable except as noted in Subjective Physical Exam Physical Exam: Left hip: Outer dressing was removed. Silverlon is clean dry and intact and left in place. Patient is able to form an active straight leg raise test. She is able to actively dorsi and plantarflex her foot without issue. Quad strength is 4 out of 5. Logroll testing causes no pain. Stinchfield testing is negative. Patient tolerates light passive hip flexion to 90 degrees but does experience some slight tension with light passive internal and external hip rotation. She is neurovascularly intact in the left lower extremity. Results & Data Vital Signs (Past 12 Hours) Vital Signs Temp Pulse Resp BP Pulse Ox O2 Del Method 10/26/22 06:29 36.8 C 99 H 18 176/78 H 96 Room Air 10/26/22 03:01 36.7 C 75 18 132/68 96 Room Air 10/25/22 22:58 36.6 C 66 18 119/72 96 Room Air Diagnostic Findings Laboratory Results WBC 8.68 K/ul (4.8-10.8) 10/26/22 05:20 RBC 3.48 M/uL (4.20-5.40) L 10/26/22 05:20 Hgb 11.1 g/dl (12.0-16.0) L 10/26/22 05:20 Hct 31.6 % (37.0-47.0) L 10/26/22 05:20 MCV 90.8 fL (80.0-100.0) 10/26/22 05:20 MCH 31.9 pg (25.0-34.0) 10/26/22 05:20 MCHC 35.1 g/dL (32.0-36.0) 10/26/22 05:20 RDW Std Deviation 42.4 fL (36.4-46.3) 10/26/22 05:20 RDW Coeff of Johnson 12.9 % (11.5-14.5) 10/26/22 05:20 Plt Count 211 K/uL (130-400) 10/26/22 05:20 MPV 9.5 fL (9.4-12.4) 10/26/22 05:20 Immature Gran % (Auto) 0.5 % 10/26/22 05:20 Neut % (Auto) 81.0 % 10/26/22 05:20 Lymph % (Auto) 11.1 % 10/26/22 05:20 Arroyo % (Auto) 7.3 % 10/26/22 05:20 Eos % (Auto) 0.0 % 10/26/22 05:20 Baso % (Auto) 0.1 % 10/26/22 05:20 Neut # (Auto) 7.04 K/uL (1.40-6.50) H 10/26/22 05:20 Lymph # (Auto) 0.96 K/uL (1.2-3.4) L 10/26/22 05:20 Arroyo # (Auto) 0.63 K/uL (0.11-0.59) H 10/26/22 05:20 Eos # (Auto) 0.00 K/uL (0-0.50) 10/26/22 05:20 Baso # (Auto) 0.01 K/uL (0-0.2) 10/26/22 05:20 Immature Gran # (Auto) 0.04 K/uL (0.01-0.20) 10/26/22 05:20 Sodium 138 mmol/L (136-145) 10/26/22 05:20 Potassium 4.1 mmol/L (3.5-5.1) 10/26/22 05:20 Chloride 110 mmol/L (98-107) H 10/26/22 05:20 Carbon Dioxide 21 mmol/L (21-32) 10/26/22 05:20 Anion Gap 7 (3-11) 10/26/22 05:20 BUN 22 mg/dl (6-23) 10/26/22 05:20 Creatinine 1.06 mg/dl (0.6-1.2) 10/26/22 05:20 Est Cr Clr Drug Dosing 37.9 ml/min 10/26/22 05:20 Est GFR ( Amer) 57.8 ml/min 10/26/22 05:20 Est GFR (Non-Af Amer) 49.9 ml/min 10/26/22 05:20 BUN/Creatinine Ratio 20.8 (10-20) H 10/26/22 05:20 Glucose 125 mg/dl (70-99(Fasting)) H 10/26/22 05:20 Calcium 8.5 mg/dl (8.6-10.3) L 10/26/22 05:20 SARS-CoV-2, RNA, NAAT NEGATIVE (NEGATIVE) 10/25/22 Unknown Impressions Hip/Pelvis X-Ray 10/25/22 11:24 XR hip 1V LT w pelvis CLINICAL HISTORY: IN PACU - Post Surgical TECHNIQUE: 2 views of the left hip and single frontal view of the pelvis were obtained. Comparison: Comparison is made to hip radiograph 10/15/2022 FINDINGS: Patient is status post total hip arthroplasty with expected postsurgical changes including soft tissue swelling and subcutaneous emphysema. IMPRESSION: Expected postoperative appearance status post placement of total hip arthroplasty. ACT 112: Negative or not required by law. Electronically signed by: Ryder Gannon M.D. 10/25/2022 12:11 PM
--- NOTE | 2022-10-26 10:18 | Discharge Summary ---
Date of Service October 26, 2022 Admission HPI Per Admitting Provider History of Present Illness Radha Childs is a pleasant 77-year-old female, who has been having left hip pain/groin pain that had worsened over the last 3 years following a fall landing on the left side. She had done PT 3 years ago. She is still having discomfort getting into and out of her car. Sitting does make it feel better. She has been doing rather well following ultrasound-guided intra-articular cortisone injection 11/28/2021. She currently rates her pain a /10. When she does ambulate, she either uses a walking stick or holds onto her . She states that the cortisone injection that she had has worn off. She has pain on a daily basis. Her pain continues to progress. She has used various medications including glucosamine and conjoint sulfate including Tylenol and Advil as well. She does not get any significant relief. She attributes her hip pain to 2 falls that she had back in 2018. She states 6 months after this fall she started feeling hip pain. Her hip pain now affects her daily living activities. She has pain with walking, sitting, rest and night pain. She has pain with any type of motion of her left hip. She has decreased activity and pain is worse with activity and weightbearing. She would like to proceed with a total hip arthroplasty for definitive treatment. Admission Exam Per Admitting Provider General: Well-dressed, well-nourished. Normal mood and affect. Alert and oriented x3. HEENT: Head: Atraumatic, normocephalic. Eyes: Extraocular movements intact, pupils equal round and reactive to light, sclera normal. Ears: Ears grossly normal, TMs are clear normal light reflex. Nose: Nares are patent bilaterally. Throat: Oropharynx clear mucous membranes moist good dentition uvula midline. Neck: Supple, no lymphadenopathy, nontender palpation, full range of motion. Cardiac: Regular rate and rhythm, normal S1, S2. No murmurs, rubs or gallops appreciated. Lungs: Clear to auscultation bilaterally. No adventitious sounds. No accessory muscle use. Abdomen: Soft, nontender, nondistended, normal bowel sounds heard in all 4 quadrants. Extremities: Focusing on the patient's left lower extremity: 2+ DP pulse Sensation to light touch is intact Motor to the gastroc soleus, tibialis anterior, hip abduction/adduction, and EHL is 5/5. Able to perform straight leg raise. - Logroll hip, causes some discomfort over the lateral aspect of the hip. Hip range of motion Forward flexion 100 ; Abduction 35 ; Adductions 10 ; ER 20 ; IR 0 . - RONNY - FADIR - Tenderness to palpation groin and greater trochanter, minimal Principal Diagnosis Left hip osteoarthritis Discharge Exam Left hip: Outer dressing was removed. Silverlon is clean dry and intact and left in place. Patient is able to form an active straight leg raise test. She is able to actively dorsi and plantarflex her foot without issue. Quad strength is 4 out of 5. Logroll testing causes no pain. Stinchfield testing is negative. Patient tolerates light passive hip flexion to 90 degrees but does experience some slight tension with light passive internal and external hip rotation. She is neurovascularly intact in the left lower extremity. Discharge Data Allergies Allergy/AdvReac Type Severity Reaction Status Date / Time SAWYER Inhibitors Allergy Intermediate lip Verified 10/25/22 07:05 swelling lisinopril Allergy Intermediate LIP Verified 10/25/22 07:05 SWELLING adhesive Allergy Mild SKIN Verified 10/25/22 07:05 IRRITATION latex Allergy Mild skin Verified 10/25/22 07:05 irritation Procedures Performed Operation Date: 10/25/22 08:50 Actual Procedures p Left Total Hip Arthroplasty(Left) - Jono Sainz MD Hospital Course (1) S/P total left hip arthroplasty: Patient had an uneventful overnight stay following left total hip arthroplasty. She is very pleased with the results of her surgery. She is scheduled to follow-up in our clinic in 2 weeks. She will be discharged home today with in- home physical therapy. Total hip precautions reviewed Weightbearing as tolerated with walker assistance DVT prophylaxis with RADHA stockings and aspirin Pain control with p.o. medication Ice with easy wrap Keep Silverlon dressing in place Abduction pillow use x6 weeks Plan is to discharge home today with in-home physical therapy for the first 2 weeks Follow-up with [facility] orthopedics as previously scheduled With questions contact our clinic at [phone] Total Time Total Time Spent Total Time Spent (In Minutes): 20 mins Discharge Plan Discharge Items Patient Disposition: Home - Home Health Services Reason For Visit: Left Hip Osteoarthritis Discharge Diagnosis: Left Hip Osteoarthritis Activity: As commented below Lifting: None Bathing: Keep incision dry Bathing Comment: May Shower tomorrow Sexual Activity: Wait until after follow-up appointment Exercise/Sports: Wait until after follow-up appointment Driving/Machine Use: No driving until cleared by credit collection specialist Weightbearing: Left weightbearing Weightbearing Comment: as tolerated with walker assistance Non-emergency contact: Surgeon Call non-emergency contact if: you have any medication questions, your pain is worsening, your temperature is above 101.5, your wound has increased drainage and your wound pain has increased Follow-up/Referrals: Jose Antonio Deleon MD [Primary Care Provider] - Kayla Doyle PA-C [Physician Electrotherapist] - 11/09/22 10:45 am Diet: Heart Healthy Addtl Attending Provider Instructions: Post-operative Instructions Dear Patient and Family/Friends, Before you are discharged from the hospital, it is important to know what to expect when you get home after surgery. To that end, we have created this sheet of discharge instructions which covers many commonly asked questions. Make sure you go through this sheet in its entirety with your nurse before you are discharged. Please note that we will go over the specifics of your surgery and recovery when you return for your first post-operative visit. Sincerely, Dr. Sainz Medications 1. Tramadol 50 mg: take 1-2 tabs every 4-6 hours as needed for pain relief. This will be sent to your pharmacy. 2. Aspirin 81 mg: increase your daily aspirin regimen to 2 tabs for the first 30 days post operatively for blood clot prevention. 3. Diclofenac Sodium 50 mg: take one tab twice daily for 30 days post operatively for pain and inflammation relief. This will be sent to your pharmacy with 1 refill. 4. Extra Strength Tylenol 500 mg: take 2 tabs every 6-8 hours as needed for additional pain relief. Please purchase. Pain Expect to be in a fair amount of pain after surgery. Remember, our goal is not to eliminate your pain, but to make it tolerable. It is a good idea to stay ahead of your pain by taking the medications you were prescribed once you get home. Typically, the pain starts improving 3-7 days after surgery. You should start weaning off the narcotic pain medication (oxycodone, hydrocodone, hydromorphone, morphine) as soon as your pain improves. Please call our office if your pain is not adequately controlled. Ice Ice your operative site at least 5 times a day for 15-30 minutes at a time. Make sure you have a thin cloth between the ice or cooling unit and your skin to prevent brink bite. This is especially important if you received a nerve block. Continue icing your operative site for the first 5-7 days after surgery, then as needed. Diet/Nausea/Vomiting Start by drinking clear liquids and eating crackers. If you can tolerate this, then you may resume your normal diet. If you feel nauseated or vomit, take Zo gabriel/ondansetron (if prescribed). Please call our office if you have intractable nausea or vomiting, or, if after hours, you may go to the Emergency Room for help. Constipation Constipation is a common side effect of narcotic pain medication. If you have not had a bowel movement within 2 days after surgery, we recommend purchasing an over the counter laxative such as Milk of Magnesia, Dulcolax, or Miralax from a local pharmacy, and taking it as instructed. Call our clinic if any questions. Nerve block The anesthesia team sometimes places a nerve block to help with post-operative pain control. This results in significant numbness and inability to move the extremity. The nerve block usually wears off in 8-12 hours, but sometimes can l ast up to 24 hours. Please call our office if you are still unable to move your extremity after 24 hours, unless you received a pain pump to take home. Nerve blocks typically wear off quickly, so start taking pain medication as soon as you start feeling soreness near your surgical site. Weight bearing and Range of Motion. Do not bear any weight through your operative extremity immediately after surgery. If you had upper extremity surgery, do not lift anything with that arm. If you are in a knee brace, keep it locked in place until your follow-up. We will discuss your weight bearing, range of motion, and lifting restrictions in detail at your first post-operative appointment. Continuous Passive Motion (CPM) Machine If you were prescribed a CPM machine, it will start after your first post- operative appointment, at which time we will give you instructions on the range of motion settings and duration of treatment Physical therapy You will be given a prescription for physical therapy or occupational therapy at your first post-operative appointment. Typically, patients start therapy within 1 week of surgery Wound care and showering We will inspect your wound at your first post-operative visit, and may do a dressing change at that time. Most patients will be in a water-proof dressing that is removed 14 days after surgery. It is normal to see some dried blood on the dressing. Do not remove your dressing, paper strips or sutures yourself unless you are given permission. Showering is allowed the day after surgery. Do not scrub or remove any dressings. The wound should not be submerged underwater (i.e. in a bathtub or pool) until 4 weeks after surgery RADHA stockings If you were given white stockings, these are to be worn at all times except to shower (on both legs) for the first 2 weeks after surgery. Driving You may not drive while taking narcotic pain medication or while in a cast, splint, sling or brace. You, the patient, need to make the final determination about when you are safe to drive, however, the earliest you may consider driving after surgery is below: Hand/Wrist/Elbow Surgery: 3 days Shoulder Surgery: 2 weeks Hip,/Knee/Ankle Surgery: 4 weeks Fracture repair: 6 weeks Return to Work Your return to work depends on what surgery was done and what type of work you do. Please bring any paperwork your employer needs completed to your first post-operative visit. Also, bring a description of your job duties, as this helps us to understand what risks you may face at work. Travel Avoid long distance travel (greater than 1 hour) in airplanes and cars for the first 6 weeks after surgery. If you must travel, you need to have a Doppler ultrasound done before you travel to rule out a blood clot in your legs. Follow-up You should have a follow-up appointment already scheduled 1-2 days after surgery. If not, please contact our office to make this appointment before you leave the hospital. When to call the office It is normal to have swelling and bruising in the limb that was operated on. This will improve with time. It is also normal to have fevers for the first 2 days after surgery. Reasons you should call your doctor include: Uncontrolled pain; Nausea, vomiting, or constipation that does not improve with medication; Fevers over 101.5, chills, sweats; Drainage or bleeding from the wound; Foul odor; Spreading areas of redness; Any other concerns Pending Studies at Discharge: No Stand-Alone Forms: [facility], Smoking Cessation Medications and DC Order Prescriptions: New acetaminophen [Tylenol Extra Strength] 500 mg Tablet 1,000 mg PO Q8 30 Days Qty: 180 0RF aspirin 81 mg Tablet,Delayed Release (Dr/Ec) 81 mg PO BID 30 Days Qty: 60 0RF tramadol 50 mg tablet 100 mg PO .q4-6h PRN (Reason: Postoperative pain control) Qty: 28 0RF diclofenac sodium 50 mg tablet,delayed release (DR/EC) 50 mg PO Q12H 30 Days Qty: 60 1RF Continued escitalopram oxalate 10 mg tablet 10 mg PO QAM Qty: 90 3RF albuterol sulfate 90 mcg/actuation HFA aerosol inhaler 1 inh inhalation QID PRN (Reason: shortness of breath or wheezing) Qty: 3 2RF mesalamine 800 mg tablet,delayed release (DR/EC) 800 mg PO TID Qty: 270 3RF cholecalciferol (vitamin D3) 25 mcg (1,000 unit) capsule 25 mcg PO BID calcium carbonate 400 mg calcium (1,000 mg) tablet,chewable 400 mg PO BID metoprolol succinate 50 mg tablet extended release 24 hr 25 mg PO QAM PRN (Reason: Tachycardia) famotidine [Pepcid] 20 mg tablet 20 mg PO HS PRN (Reason: acid reflux) cetirizine [Zyrtec] 10 mg Tablet 10 mg PO QAM clonidine HCl 0.1 mg tablet 0.1 mg PO TID PRN (Reason: htn) pantoprazole 40 mg tablet,delayed release (DR/EC) 40 mg PO QAM ciclopirox 8 % Solution 1 applic TOPICAL HS Changed aspirin 81 mg Tablet,Delayed Release (Dr/Ec) 81 mg PO BID Qty: 30 0RF Krames/Other Patient Handouts: DVT Post Op Prevention, After Hip Replacement: Home Safety, Hip Total Replacement Dc Admission Data Admit Date/Time: 10/25/22 11:24 Attending Provider: Jono Sainz Admit Provider: Jono Sainz Primary Care Provider: Jose Antonio Deleon Other Providers: [facility] Other Interventions: Discharge Summary Assessment (RN) Last Done: 10/26/22 10:03
== END 2022-10-26 10:43 | disposition home health service (06) ==
LOC: ASU 06:40 → 3E 06:40